=== PATIENT | male | born 1950 | race Caucasian/White ===

== ENCOUNTER → 2017-03-25 | Outpatient (CLI) | payer MEDICARE, MEDICAID ==
--- NOTE | 2017-03-26 07:58 | XCELERA REPORT ---
[address] [address] Lower Extremity Arterial Evaluation Name: BRE BERNARD Age: 66 yrs Gender: Male : 1950 Patient Status: Outpatient Patient Location: Study Date: 03/25/2017 09:15 AM Procedure: A color flow and duplex scan of the lower extremity arteries was performed bilaterally with velocity and waveform anaylsis. Reason For Study: PVD Ordering Physician: BEA GLASER Performed By: Adalberto Taylor Measurements and Calculations Right Left SUBSTATION OPERATOR APPRENTICE PSV 144.6 133.3 cm/sec Prox PFA PSV -138.3 -135.9 cm/sec Dist SFA PSV -167.9 -139.1 cm/sec Dist Pop A PSV 91.5 82.2 cm/sec Prox LYNN PSV 60.4 34.4 cm/sec Mid LYNN PSV 25.8 cm/sec Dist ACCOUNTANT SYSTEMS PSV 96.3 95.9 cm/sec Scott Pedis PSV 37.3 27.7 cm/sec Right Side Arterial Evaluation Normal velocity and triphasic waveforms noted from the Common Femoral artery to the Posterior Tibial artery. 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 . Ankle Brachial index is 1.09. Left Side Arterial Evaluation Normal velocity and triphasic waveforms noted from the Common Femoral artery to the Posterior Tibial artery. 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 . Ankle Brachial index is 1.11. Interpretation Summary Mild hemodynamically significant lesions in the bilateral lower extremities, on duplex imaging, at rest. : BEA GLASER > Germán Melton
== END ==
LOC: SP 08:46
PROVIDERS: ATTEND Internal Medicine
DX: I73.9 Peripheral vascular disease, unspecified (principal)
CPT/HCPCS: 93925

== ENCOUNTER → 2017-08-13 | Outpatient (CLI) | payer MEDICARE, MEDICAID | LOC: SP 07:34 | PROVIDERS: ATTEND Podiatrist Foot & Ankle Surgery | DX: I73.9 Peripheral vascular disease, unspecified (principal) ==

== ENCOUNTER → 2017-08-15 | Outpatient (CLI) | payer MEDICARE, MEDICAID ==
--- NOTE | 2017-08-15 11:34 | RADIOLOGY REPORT (SQ) ---
EXAM DESCRIPTION: CT SOFT TISSUE NECK WITHOUT COMPLETED DATE/TIME: 08/15/2017 10:20 am REASON FOR STUDY: LOCALIZED SWELLING, MASS AND LUMP, NECK (R22.1) R22.1 LOCALIZED SWELLING, MASS AN D LUMP, NECK COMPARISON: None. TECHNIQUE: Noncontrast scanning from skull base through lung apices with review of bone, soft tissue and lung windows. Reconstructed coronal and sagittal MPR images reviewed. All images stored on PAC S. All CT scanners at this facility use dose modulation, iterative reconstruction, and/or weight based d osing when appropriate to reduce radiation dose to as low as reasonably achievable (ALARA). [facility]: Dose Right [facility]: CareDose [facility]: Dose Right [facility]: Teradose 4D [facility]: [employer] RADIATION DOSE: 24 mGy. LIMITATIONS: None. FINDINGS: SKULL BASE: Intact. Inferior brain parenchyma in the field of view unremarkable. MAJOR SALIVARY GLANDS: No solid or cystic masses. No inflammatory changes. LYMPHADENOPATHY: No adenopathy. MUCOSAL MASSES OR ASYMMETRY: No mucosal masses or asymmetry. LARYNX/CORDS: No abnormal findings. Airway widely patent. Laryngeal structures are normal. LUNG APICES: Clear. BONES: Remote prior C5-6 fusion. THYROID: Normal size. No masses. PARANASAL SINUSES: Clear. OTHER: There is atherosclerotic carotid bifurcation calcification bilaterally. IMPRESSION: NO SIGNIFICANT FINDING IN THE SOFT TISSUES OF THE NECK. TECHNICAL DOCUMENTATION: JOB ID: [id number] Quality ID # [id number]: Final reports with documentation of one or more dose reduction techniques (e.g., Au tomated exposure control, adjustment of the mA and/or kV according to patient size, use of iterative reconstruction technique) 2010 [employer]- All Rights Reserved
== END ==
LOC: RAD 09:49
PROVIDERS: ATTEND Internal Medicine
DX: R22.1 Localized swelling, mass and lump, neck (principal)
CPT/HCPCS: 70490

== ENCOUNTER 2017-10-07 12:49 | Inpatient (IN) | payer MEDICARE, MEDICAID ==
[2017-10-07] MEDS ORDERED: INFLUENZA ADLT QUAD (36MOS+) 2017-18 VAC 0.5 ML SYR IM PRN (14:09)
[2017-10-07 15:07] LABS: HEMATOCRIT 33.1 % (37.9-51.0); HEMOGLOBIN 11.1 g/dL (13.5-17.0); MEAN CORPUSCULAR HEMOGLOBIN 26.5 pg (27.0-33.4); MEAN CORPUSCULAR HGB CONC 33.4 g/dL (32.0-36.0); MEAN CORPUSCULAR VOLUME 79 fl (80-97); PLATELET COUNT 421 10^3/uL (150-450); RED BLOOD COUNT 4.18 10^6/uL (4.35-5.55); WHITE BLOOD COUNT 15.9 10^3/uL (4.0-10.5)
[2017-10-07 15:22] LABS: ALANINE AMINOTRANSFERASE 20 U/L (21-72); ALBUMIN 4.1 g/dL (3.5-5.0); ALKALINE PHOSPHATASE 93 U/L (38-126); ANION GAP 17 (5-19); ASPARTATE AMINO TRANSFERASE 17 U/L (17-59); BILIRUBIN,TOTAL 0.3 mg/dL (0.2-1.3); BLOOD UREA NITROGEN 14 mg/dL (7-20); CALCIUM 9.4 mg/dL (8.4-10.2); CARBON DIOXIDE 26 mmol/L (22-30); CHLORIDE 86 mmol/L (98-107); GLUCOSE 113 mg/dL (75-110); POTASSIUM 3.4 mmol/L (3.6-5.0); SODIUM 128.5 mmol/L (137-145); TOTAL PROTEIN 7.2 g/dL (6.3-8.2)
--- NOTE | 2017-10-07 16:15 | RADIOLOGY REPORT (SQ) ---
EXAM DESCRIPTION: CT CHEST WITHOUT COMPLETED DATE/TIME: 10/07/2017 3:47 pm REASON FOR STUDY: COPD,PNA COMPARISON: CT chest 01/23/2011, 10/26/2014, 01/18/2016 TECHNIQUE: CT scan performed of the chest without intravenous contrast. Images reviewed with lung, soft tissue and bone windows. Reconstructed coronal and sagittal MPR images reviewed. All images st ored on PACS. All CT scanners at this facility use dose modulation, iterative reconstruction, and/or weight based d osing when appropriate to reduce radiation dose to as low as reasonably achievable (ALARA). [facility]: Dose Right [facility]: CareDose [facility]: Dose Right [facility]: Teradose 4D [facility]: [employer] RADIATION DOSE: CT Rad equipment meets quality standard of care and radiation dose reduction techniq ues were employed. CTDIvol: 15.9 mGy. DLP: 571 mGy-cm. mGy. LIMITATIONS: No technical limitations. FINDINGS: LUNGS AND PLEURA: Since the chest CT 01/18/2016, patient has developed peripheral pulmonary fibrosis with honeycombing in the anterior aspect of the right upper lobe. In the right posterior costophrenic sulcus there is new consolidation, atelectasis versus pneumonia. There is stable rounded atelectasis in the left posterior costophrenic sulcus and lateral costophreni c sulcus as compared to 2016 No worrisome pulmonary nodules. Mild changes of obstructive lung disease with enlarged centrilobular airspaces in the upper lobes bilaterally. No pleural effusions. Heavily calcified pleural plaques are present bilaterally. HILAR AND MEDIASTINAL STRUCTURES: Multiple small pretracheal, AP window, and bilateral hilar lymph no narendra are present stable compared to previous exams. HEART AND VASCULAR STRUCTURES: No aneurysm. No pericardial effusion. Heavily calcified coronary art eries UPPER ABDOMEN: Small hiatal hernia. 1.5 cm cyst right upper pole kidney THYROID AND OTHER SOFT TISSUES: No masses. No adenopathy. BONES: Since the prior study in 2014, patient has developed a chronic appearing 25% upper endplate T8 compression deformity HARDWARE: None in the chest. OTHER: No other significant findings. IMPRESSION: Right posterior costophrenic sulcus consolidation, atelectasis versus pneumonia Chronic lung parenchymal findings including obstructive disease, pulmonary fibrosis, and rounded atel ectasis. Multiple calcific pleural plaques without pleural effusion Heavily calcified coronary arteries TECHNICAL DOCUMENTATION: JOB ID: [id number] Quality ID # [id number]: Final reports with documentation of one or more dose reduction techniques (e.g., Au tomated exposure control, adjustment of the mA and/or kV according to patient size, use of iterative reconstruction technique) 2010 [employer]- All Rights Reserved
[2017-10-07 18:05] LABS: APPEARANCE,URINE CLEAR; BILIRUBIN,URINE NEGATIVE (NEGATIVE); COLOR,URINE YELLOW; GLUCOSE, URINE NEGATIVE (NEGATIVE); KETONES,URINE TRACE mg/dL (NEGATIVE); LEUKOCYTE ESTERASE,URINE NEGATIVE (NEGATIVE); NITRITE,URINE NEGATIVE (NEGATIVE); PROTEIN,URINE NEGATIVE (NEGATIVE); URINE SPECIFIC GRAVITY 1.019
[2017-10-07 18:10] LABS: ARTERIAL BLOOD FIO2 2L; ARTERIAL BLOOD HCO3 26.8 mmol/L (20-26); ARTERIAL BLOOD O2 SATURATION 41.1 % (94-98); ARTERIAL BLOOD PCO2 43.1 mmHg (35-45); ARTERIAL BLOOD PH 7.41 (7.35-7.45); ARTERIAL BLOOD TOTAL CO2 28.2 mmol/L (23-27)
[2017-10-07 18:12] LABS: ARTERIAL BLOOD PO2 23.2 mmHg (80-100)
[2017-10-07] MEDS: LEVOFLOXACIN 750 MG/D5W RTU 750 MG/150 ML RTUPB IV SCH (18:54)
[2017-10-07] MEDS ORDERED: (PENDING PHARMACY ID) (Lisinopril/Hydrochlorothiazide [Zestoretic 20-12.5 Mg Tablet] 1 TAB PO SCH (19:15)
[2017-10-07 21:15] LABS: ARTERIAL BLOOD H2CO3 1.11 mmol/L (1.05-1.35); ARTERIAL BLOOD HCO3 26.5 mmol/L (20-26); ARTERIAL BLOOD O2 SATURATION 92.9 % (94-98); ARTERIAL BLOOD PCO2 36.8 mmHg (35-45); ARTERIAL BLOOD PH 7.48 (7.35-7.45); ARTERIAL BLOOD PO2 60.7 mmHg (80-100); ARTERIAL BLOOD TOTAL CO2 27.7 mmol/L (23-27)
[2017-10-07 21:16] LABS: ARTERIAL BLOOD FIO2 2L
[2017-10-07] MEDS: IPRATROPIUM/ALBUTEROL 0.5-2.5 MG/3 ML AMPUL NEB SCH (21:23)
[2017-10-07] MEDS: LISINOPRIL 10 MG TABLET PO SCH (21:25)
[2017-10-07] MEDS: SERTRALINE HCL 50 MG TABLET PO SCH (21:25)
[2017-10-07] MEDS: HYDROCHLOROTHIAZIDE 12.5 MG CAPSULE PO SCH (21:25)
[2017-10-07] MEDS: GABAPENTIN 300 MG CAPSULE PO SCH (21:25)
[2017-10-07] MEDS: CLONIDINE HCL 0.1 MG TABLET PO SCH (21:25)
[2017-10-07] MEDS: ZOLPIDEM TARTRATE 5 MG TABLET PO SCH (21:26)
[2017-10-07] MEDS: CEFEPIME HCL 2 GM in DEXTROSE 5%-WATER 50 ML IV SCH (21:35)
--- NOTE | 2017-10-07 21:47 | PDOC H&P ---
History of Present Illness Admission Date/PCP: 10/07/17 12:49 BEA GLASER MD History of Present Illness: BRE BERNARD is a 66 year old male,He has a history of chronic obstructive pulmonary disease, a recalcitrant smoker he was seen in the office more than twice for treatment of bronchitis, flulike symptoms. He came to the office today for evaluation of cough, fever, blisters in the upper lip, shortness of breath. In the office he was evaluated he was coughing of tenacious yellowish sputum on auscultation ofhis chest there was crackles wheezes. He was admitted directly from the office into the hospital for further evaluation of his chest symptoms blood gas was done , pH is 7.48, PO2 60.7 PCO2 36.8, bicarbonate 26.5, FiO2 [address] chest without contrast was done he showed progressive development of peripheral pulmonary fibrosis with honey combing in the anterior aspect of the right upper lobe in the right posterior costophrenic sulcus there is a new consolidation that suggest pneumonia because can was gone. Surgical scar from 01/18/2016 also found was changes of obstructive lung disease with a large centrilobular spaces in the upper lobe bilaterally Past Medical History Cardiac Medical History: Reports: Coronary Artery Disease, Myocardial Infarction , Hyperlipidema, Hypertension Neurological Medical History: Denies: Seizures GI Medical History: Reports: Gastroesophageal Reflux Disease Psychiatric Medical History: Reports: Depression Social History Smoking Status: Current Every Day Smoker Frequency of Alcohol Use: Occasional Hx Recreational Drug Use: No Drugs: None Hx Prescription Drug Abuse: No Family History Family History: Reviewed & Not Pertinent Parental Family History Reviewed: Yes Children Family History Reviewed: Yes Sibling(s) Family History Reviewed.: Yes Medication/Allergy Home Medications: Acetaminophen with Codeine [Tylenol #3 Tablet] 1 tab PO Q6HP PRN 10/07/17 Aripiprazole [Abilify 2 mg Tablet] 2 mg PO DAILY 10/07/17 Clobetasol Propionate [Clobetasol Propionate Cream] 1 applic TOP BID 10/07/17 Clonidine HCl [Catapres 0.1 mg Tablet] 0.1 mg PO BID 10/07/17 Furosemide [Lasix 40 mg Tablet] 40 mg PO DAILY 10/07/17 Gabapentin [Neurontin 300 mg Capsule] 300 mg PO Q8 10/07/17 Lisinopril/Hydrochlorothiazide [Zestoretic 20-12.5 mg Tablet] 1 tab PO Q12 10/07 Metoprolol Succinate [Toprol Xl 25 mg Tab.sr] 25 mg PO DAILY 10/07/17 Omeprazole 40 mg PO DAILY 10/07/17 Piroxicam [Feldene] 20 mg PO DAILY 10/07/17 Pramipexole Di-HCl [Mirapex 0.25 mg Tablet] 0.25 mg PO BID 10/07/17 Sertraline HCl [Zoloft] 100 mg PO BID 10/07/17 Zolpidem Tartrate [Ambien] 10 mg PO QHS 10/07/17 Allergies/Adverse Reactions: No Known Allergies Allergy (Verified 01/18/16 13:02) Review of Systems Constitutional: PRESENT: chills Eyes: ABSENT: visual disturbances Ears: ABSENT: hearing changes Cardiovascular: PRESENT: dyspnea on exertion Respiratory: PRESENT: cough, dyspnea, sputum Gastrointestinal: ABSENT: abdominal pain, constipation, diarrhea, hematemesis, hematochezia, nausea, vomiting Genitourinary: ABSENT: dysuria, hematuria Musculoskeletal: ABSENT: joint swelling Integumentary: ABSENT: rash, wounds Neurological: ABSENT: abnormal gait, abnormal speech, confusion, dizziness, focal weakness, syncope Psychiatric: ABSENT: anxiety, depression, homidical ideation, suicidal ideation Endocrine: ABSENT: cold intolerance, heat intolerance, menstrual abnormalities, polydipsia, polyuria Hematologic/Lymphatic: ABSENT: easy bleeding, easy bruising, lymphadenopathy Physical Exam Vital Signs: Temp Pulse Resp BP Pulse Ox 98.2 F 85 15 143/65 H 90 L 10/07/17 16:54 10/07/17 19:00 10/07/17 16:54 10/07/17 16:54 10/07/17 16:54 Intake & Output 10/06/17 10/07/17 10/08/17 06:59 06:59 06:59 Weight 97.976 kg General appearance: PRESENT: no acute distress Eye exam: PRESENT: PERRLA Respiratory exam: PRESENT: rhonchi, wheezes Cardiovascular exam: PRESENT: +S1, +S2 GI/Abdominal exam: PRESENT: soft Neurological exam: PRESENT: alert, CN II-XII grossly intact Results Laboratory Results: 10/07/17 14:43 10/07/17 14:43 02/02/1610/07/17 10/07/17 14:43 14:43 14:50 WBC 15.9 H RBC 4.18 L Hgb 11.1 L Hct 33.1 L MCV 79 L MCH 26.5 L MCHC 33.4 RDW 16.0 H Plt Count 421 Carbonic Acid 1.30 HCO3/H2CO3 Ratio 20:1 ABG pH 7.41 ABG pCO2 43.1 ABG pO2 23.2 L* ABG HCO3 26.8 H ABG O2 Saturation 41.1 L ABG Base Excess 2.0 FiO2 2L Sodium 128.5 L Potassium 3.4 L Chloride 86 L Carbon Dioxide 26 Anion Gap 17 BUN 14 Creatinine 0.78 Est GFR ( Amer) > 60 Est GFR (Non-Af Amer) > 60 Glucose 113 H Calcium 9.4 Total Bilirubin 0.3 AST 17 ALT 20 L Alkaline Phosphatase 93 Total Protein 7.2 Albumin 4.1 Urine Color Urine Appearance Urine pH Ur Specific [place] Urine Protein Urine Glucose (UA) Urine Ketones Urine Blood Urine Nitrite Ur Leukocyte Esterase Urine WBC (Auto) Urine RBC (Auto) 10/07/17 10/07/17 17:45 19:00 WBC RBC Hgb Hct MCV MCH MCHC RDW Plt Count Carbonic Acid 1.11 HCO3/H2CO3 Ratio 23:1 ABG pH 7.48 H ABG pCO2 36.8 ABG pO2 60.7 L ABG HCO3 26.5 H ABG O2 Saturation 92.9 L ABG Base Excess 3.0 FiO2 2L Sodium Potassium Chloride Carbon Dioxide Anion Gap BUN Creatinine Est GFR ( Amer) Est GFR (Non-Af Amer) Glucose Calcium Total Bilirubin AST ALT Alkaline Phosphatase Total Protein Albumin Urine Color YELLOW Urine Appearance CLEAR Urine pH 6.0 Ur Specific [place] 1.019 Urine Protein NEGATIVE Urine Glucose (UA) NEGATIVE Urine Ketones TRACE H Urine Blood NEGATIVE Urine Nitrite NEGATIVE Ur Leukocyte Esterase NEGATIVE Urine WBC (Auto) 1 Urine RBC (Auto) 2 Impressions: Chest CT 10/07/17 13:26 IMPRESSION: Right posterior costophrenic sulcus consolidation, atelectasis versus pneumonia Chronic lung parenchymal findings including obstructive disease, pulmonary fibrosis, and rounded atelectasis. Multiple calcific pleural plaques without pleural effusion Heavily calcified coronary arteries Assessment & Plan - Diagnosis (1) Acute hypoxemic respiratory failure Is this a current diagnosis for this admission?: Yes Plan: Start oxygen on 2 L (2) Pneumonia involving right lung Qualifiers: Pneumonia type: due to unspecified organism Lung location: upper lobe of lung Qualified Code(s): J18.1 - Lobar pneumonia, unspecified organism Is this a current diagnosis for this admission?: Yes Plan: Patient will be treated with IV antibiotic to cover community-acquired pneumonia pathogens, Levaquin, cefepime (3) Pulmonary fibrosis Is this a current diagnosis for this admission?: Yes (4) Chronic obstructive pulmonary disease Qualifiers: COPD type: unspecified COPD Qualified Code(s): J44.9 - Chronic obstructive pulmonary disease, unspecified Is this a current diagnosis for this admission?: Yes
[2017-10-08] MEDS: ACETAMINOPHEN WITH CODEINE #3 TABLET PO PRN ×2 (02:09→21:08)
[2017-10-08] MEDS: LANSOPRAZOLE 30 MG TAB.RAP.DR PO SCH (06:01)
[2017-10-08] MEDS: GABAPENTIN 300 MG CAPSULE PO SCH ×3 (06:01→21:08)
[2017-10-08] MEDS: IPRATROPIUM/ALBUTEROL 0.5-2.5 MG/3 ML AMPUL NEB SCH ×3 (08:23→19:22)
[2017-10-08] MEDS: CLONIDINE HCL 0.1 MG TABLET PO SCH ×2 (10:03→21:08)
[2017-10-08] MEDS: HYDROCHLOROTHIAZIDE 12.5 MG CAPSULE PO SCH ×2 (10:03→21:08)
[2017-10-08] MEDS: SERTRALINE HCL 50 MG TABLET PO SCH ×2 (10:04→21:08)
[2017-10-08] MEDS: ARIPIPRAZOLE 2 MG TABLET PO SCH (10:04)
[2017-10-08] MEDS: METOPROLOL SUCCINATE 25 MG TAB.SR.24H PO SCH (10:04)
[2017-10-08] MEDS: CEFEPIME HCL 2 GM in DEXTROSE 5%-WATER 50 ML IV SCH ×2 (10:04→22:56)
[2017-10-08] MEDS: LISINOPRIL 10 MG TABLET PO SCH ×2 (10:04→21:08)
--- NOTE | 2017-10-08 13:29 | Physician Advisory Note ---
Physician Advisor ProgressNote .: Pursuant to the plan for [facility], I have reviewed the medical record for this patient. Physician Advisor Statement: Sx of the pneumonia are nicely documented. Please consider documenting, if you agree: 1. "Acute Hyponatremia, suspect due to " 2. Findings of increased work of breathing (accessory muscle use, ...) to to with hypoxemia support dx of Acute Respiratory Failure. 3. "Pneumonia, suspect due to [gram positive organism? gram neg?, ...] , evidenced by cough, sputum, SOB, JUNE, hypoxemia, leukocytosis, infiltrate" - any fever/chills too? - mentioning "cover for CAP pathogens" is not enough for coding accurately/ specifically, as much as we might feel it ought to be.... Thanks! CK
[2017-10-08 14:41] LABS: ABSOLUTE EOSINOPHILS # (AUTO) 0.3 10^3/uL (0.0-0.6); ABSOLUTE LYMPHOCYTES (AUTO) 1.4 10^3/uL (0.5-4.7); ABSOLUTE MONOCYTES (AUTO) 0.8 10^3/uL (0.1-1.4); ABSOLUTE NEUT (AUTO) 9.8 10^3/uL (1.7-8.2); BASOPHILS % (AUTO) 0.2 % (0-2); EOSINOPHILS % (AUTO) 2.1 % (0-6); HEMATOCRIT 30.4 % (37.9-51.0); LYMPHOCYTES % (AUTO) 11.4 % (13-45); MEAN CORPUSCULAR HEMOGLOBIN 26.3 pg (27.0-33.4); MEAN CORPUSCULAR VOLUME 80 fl (80-97); MONOCYTES % (AUTO) 6.3 % (3-13); PLATELET COUNT 396 10^3/uL (150-450); RED BLOOD COUNT 3.81 10^6/uL (4.35-5.55); TOTAL CELLS COUNTED % (AUTO) 100 %; WHITE BLOOD COUNT 12.3 10^3/uL (4.0-10.5)
[2017-10-08 15:18] LABS: ALANINE AMINOTRANSFERASE 22 U/L (21-72); ALBUMIN 3.3 g/dL (3.5-5.0); ALKALINE PHOSPHATASE 91 U/L (38-126); ANION GAP 10 (5-19); ASPARTATE AMINO TRANSFERASE 16 U/L (17-59); BILIRUBIN,TOTAL 0.2 mg/dL (0.2-1.3); BLOOD UREA NITROGEN 11 mg/dL (7-20); CALCIUM 9.1 mg/dL (8.4-10.2); CARBON DIOXIDE 28 mmol/L (22-30); CHLORIDE 94 mmol/L (98-107); GLUCOSE 129 mg/dL (75-110); POTASSIUM 3.7 mmol/L (3.6-5.0); TOTAL PROTEIN 6.5 g/dL (6.3-8.2)
--- NOTE | 2017-10-08 15:54 | PDOC PROGRESS REPORT ---
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 Reason For Visit: PNA,COPD Physical Exam Vital Signs: Temp Pulse Resp BP Pulse Ox 98.3 F 66 16 127/71 H 93 10/08/17 12:00 10/08/17 14:00 10/08/17 14:00 10/08/17 12:00 10/08/17 14:00 Intake & Output 10/07/17 10/08/17 10/09/17 06:59 06:59 06:59 Intake Total 720 1242 Output Total 950 700 Balance -230 542 Weight 97.976 kg Head exam: PRESENT: atraumatic, normocephalic Eye exam: PRESENT: PERRLA Neck exam: PRESENT: full ROM Respiratory exam: PRESENT: decreased breath sounds Cardiovascular exam: PRESENT: RRR, +S1, +S2 Vascular exam: PRESENT: normal capillary refill GI/Abdominal exam: PRESENT: normal bowel sounds, soft Rectal exam: PRESENT: deferred Neurological exam: PRESENT: alert, CN II-XII grossly intact Psychiatric exam: PRESENT: appropriate affect, normal mood Skin exam: PRESENT: dry, intact, warm Results Laboratory Results: 10/08/17 14:17 10/08/17 14:17 10/07/17 10/07/17 10/07/17 14:43 14:50 17:45 WBC RBC Hgb Hct MCV MCH MCHC RDW Plt Count Seg Neutrophils % Lymphocytes % Monocytes % Eosinophils % Basophils % Absolute Neutrophils Absolute Lymphocytes Absolute Monocytes Absolute Eosinophils Absolute Basophils Carbonic Acid 1.30 HCO3/H2CO3 Ratio 20:1 ABG pH 7.41 ABG pCO2 43.1 ABG pO2 23.2 L* ABG HCO3 26.8 H ABG O2 Saturation 41.1 L ABG Base Excess 2.0 FiO2 2L Sodium Potassium Chloride Carbon Dioxide Anion Gap BUN Creatinine Est GFR ( Amer) Est GFR (Non-Af Amer) Glucose Serum Osmolality 259 L Calcium Total Bilirubin AST ALT Alkaline Phosphatase Total Protein Albumin Urine Color YELLOW Urine Appearance CLEAR Urine pH 6.0 Ur Specific [place] 1.019 Urine Protein NEGATIVE Urine Glucose (UA) NEGATIVE Urine Ketones TRACE H Urine Blood NEGATIVE Urine Nitrite NEGATIVE Ur Leukocyte Esterase NEGATIVE Urine WBC (Auto) 1 Urine RBC (Auto) 2 Urine Osmolality 10/07/17 10/07/17 10/08/17 17:45 19:00 14:17 WBC 12.3 H RBC 3.81 L Hgb 10.0 L Hct 30.4 L MCV 80 MCH 26.3 L MCHC 33.0 RDW 16.0 H Plt Count 396 Seg Neutrophils % 80.0 H Lymphocytes % 11.4 L Monocytes % 6.3 Eosinophils % 2.1 Basophils % 0.2 Absolute Neutrophils 9.8 H Absolute Lymphocytes 1.4 Absolute Monocytes 0.8 Absolute Eosinophils 0.3 Absolute Basophils 0.0 Carbonic Acid 1.11 HCO3/H2CO3 Ratio 23:1 ABG pH 7.48 H ABG pCO2 36.8 ABG pO2 60.7 L ABG HCO3 26.5 H ABG O2 Saturation 92.9 L ABG Base Excess 3.0 FiO2 2L Sodium Potassium Chloride Carbon Dioxide Anion Gap BUN Creatinine Est GFR ( Amer) Est GFR (Non-Af Amer) Glucose Serum Osmolality Calcium Total Bilirubin AST ALT Alkaline Phosphatase Total Protein Albumin Urine Color Urine Appearance Urine pH Ur Specific [place] Urine Protein Urine Glucose (UA) Urine Ketones Urine Blood Urine Nitrite Ur Leukocyte Esterase Urine WBC (Auto) Urine RBC (Auto) Urine Osmolality 577 10/08/17 14:17 WBC RBC Hgb Hct MCV MCH MCHC RDW Plt Count Seg Neutrophils % Lymphocytes % Monocytes % Eosinophils % Basophils % Absolute Neutrophils Absolute Lymphocytes Absolute Monocytes Absolute Eosinophils Absolute Basophils Carbonic Acid HCO3/H2CO3 Ratio ABG pH ABG pCO2 ABG pO2 ABG HCO3 ABG O2 Saturation ABG Base Excess FiO2 Sodium 132.0 L Potassium 3.7 Chloride 94 L Carbon Dioxide 28 Anion Gap 10 BUN 11 Creatinine 0.71 Est GFR ( Amer) > 60 Est GFR (Non-Af Amer) > 60 Glucose 129 H Serum Osmolality Calcium 9.1 Total Bilirubin 0.2 AST 16 L ALT 22 Alkaline Phosphatase 91 Total Protein 6.5 Albumin 3.3 L Urine Color Urine Appearance Urine pH Ur Specific [place] Urine Protein Urine Glucose (UA) Urine Ketones Urine Blood Urine Nitrite Ur Leukocyte Esterase Urine WBC (Auto) Urine RBC (Auto) Urine Osmolality Impressions: Chest CT 10/07/17 13:26 IMPRESSION: Right posterior costophrenic sulcus consolidation, atelectasis versus pneumonia Chronic lung parenchymal findings including obstructive disease, pulmonary fibrosis, and rounded atelectasis. Multiple calcific pleural plaques without pleural effusion Heavily calcified coronary arteries Assessment & Plan - Diagnosis (1) Acute hypoxemic respiratory failure Is this a current diagnosis for this admission?: Yes (2) Pneumonia due to hemophilus influenzae Qualifiers: Laterality: right Lung location: middle lobe of lung Qualified Code(s): J14 - Pneumonia due to Hemophilus influenzae Is this a current diagnosis for this admission?: Yes Plan: Sputum culture grew Haemophilus influenza, presently on IV antibiotic that will cover this pathogen. (3) Pneumonia involving right lung Qualifiers: Pneumonia type: due to unspecified organism Lung location: upper lobe of lung Qualified Code(s): J18.1 - Lobar pneumonia, unspecified organism Is this a current diagnosis for this admission?: Yes (4) Pulmonary fibrosis Is this a current diagnosis for this admission?: Yes (5) Chronic obstructive pulmonary disease Qualifiers: COPD type: unspecified COPD Qualified Code(s): J44.9 - Chronic obstructive pulmonary disease, unspecified Is this a current diagnosis for this admission?: Yes
[2017-10-08] MEDS: LEVOFLOXACIN 750 MG/D5W RTU 750 MG/150 ML RTUPB IV SCH (19:03)
[2017-10-08] MEDS: NORMAL SALINE 1000 ML 1,000 ML IV PRN (21:08)
[2017-10-08] MEDS: ZOLPIDEM TARTRATE 5 MG TABLET PO SCH (21:08)
[2017-10-08] MEDS ORDERED: ACYCLOVIR 200 MG CAPSULE ONE (22:44)
[2017-10-08] MEDS: ACYCLOVIR 200 MG CAPSULE PO SCH (23:00)
[2017-10-09] MEDS: GABAPENTIN 300 MG CAPSULE PO SCH ×3 (05:58→21:32)
[2017-10-09] MEDS: LANSOPRAZOLE 30 MG TAB.RAP.DR PO SCH (05:58)
[2017-10-09 07:25] LABS: HEMATOCRIT 30.1 % (37.9-51.0); HEMOGLOBIN 9.8 g/dL (13.5-17.0); MEAN CORPUSCULAR HGB CONC 32.6 g/dL (32.0-36.0); MEAN CORPUSCULAR VOLUME 80 fl (80-97); PLATELET COUNT 391 10^3/uL (150-450); RED BLOOD COUNT 3.79 10^6/uL (4.35-5.55); RED CELL DISTRIBUTION WIDTH 15.8 % (11.5-14.0); WHITE BLOOD COUNT 13.3 10^3/uL (4.0-10.5)
[2017-10-09 07:43] LABS: ALANINE AMINOTRANSFERASE 25 U/L (21-72); ALBUMIN 3.4 g/dL (3.5-5.0); ALKALINE PHOSPHATASE 93 U/L (38-126); ANION GAP 12 (5-19); ASPARTATE AMINO TRANSFERASE 17 U/L (17-59); BLOOD UREA NITROGEN 10 mg/dL (7-20); CALCIUM 8.9 mg/dL (8.4-10.2); CARBON DIOXIDE 27 mmol/L (22-30); CHLORIDE 95 mmol/L (98-107); GLUCOSE 116 mg/dL (75-110); SODIUM 133.6 mmol/L (137-145); TOTAL PROTEIN 6.2 g/dL (6.3-8.2)
[2017-10-09 07:44] LABS: BILIRUBIN,TOTAL < 0.1 mg/dL (0.2-1.3)
[2017-10-09 08:05] LABS: ABSOLUTE LYMPHOCYTES# (MANUAL) 0.9 10^3/uL (0.5-4.7); ABSOLUTE MONOCYTES # (MANUAL) 0.7 10^3/uL (0.1-1.4); BAND NEUTROPHILS % (MANUAL) 1 % (3-5); BASOPHILS % (MANUAL) 0 % (0-2); EOSINOPHILS % (MANUAL) 5 % (0-6); LYMPHOCYTES % (MANUAL) 7 % (13-45); MONOCYTES % (MANUAL) 5 % (3-13); SEGMENTED NEUTROPHILS % (MAN) 82 % (42-78); TOTAL CELLS COUNTED 100
[2017-10-09 08:06] LABS: ANISOCYTOSIS SLIGHT; OVALOCYTES SLIGHT; PLATELET COMMENT ADEQUATE; POIKILOCYTOSIS SLIGHT; POLYCHROMASIA 1+; TOXIC GRANULATION 1+
[2017-10-09] MEDS: IPRATROPIUM/ALBUTEROL 0.5-2.5 MG/3 ML AMPUL NEB SCH ×3 (08:55→20:59)
[2017-10-09] MEDS: METOPROLOL SUCCINATE 25 MG TAB.SR.24H PO SCH (09:46)
[2017-10-09] MEDS: CLONIDINE HCL 0.1 MG TABLET PO SCH ×2 (09:46→21:32)
[2017-10-09] MEDS: CEFEPIME HCL 2 GM in DEXTROSE 5%-WATER 50 ML IV SCH ×2 (09:46→21:32)
[2017-10-09] MEDS: ACYCLOVIR 200 MG CAPSULE PO SCH ×4 (09:46→21:32)
[2017-10-09] MEDS: LISINOPRIL 10 MG TABLET PO SCH ×2 (09:46→21:32)
[2017-10-09] MEDS: SERTRALINE HCL 50 MG TABLET PO SCH ×2 (09:46→21:32)
[2017-10-09] MEDS: ARIPIPRAZOLE 2 MG TABLET PO SCH (09:46)
[2017-10-09] MEDS: HYDROCHLOROTHIAZIDE 12.5 MG CAPSULE PO SCH ×2 (09:46→21:32)
[2017-10-09] MEDS: HYDROMORPHONE HCL INJ/PF 2 MG/ML AMPULE IV PRN ×3 (09:55→21:39)
[2017-10-09] MEDS: LEVOFLOXACIN 750 MG TABLET PO SCH (18:42)
[2017-10-09] MEDS: ZOLPIDEM TARTRATE 5 MG TABLET PO SCH (21:32)
--- NOTE | 2017-10-09 22:07 | PDOC PROGRESS REPORT ---
Subjective Progress Note for:: 10/09/17 Subjective:: Patient was seen by the bedside the sputum culture grew Haemophilus influenza Reason For Visit: PNA,COPD Physical Exam Vital Signs: Temp Pulse Resp BP Pulse Ox 98.1 F 67 20 172/78 H 96 10/09/17 20:00 10/09/17 20:00 10/09/17 20:00 10/09/17 20:00 10/09/17 20:00 Intake & Output 10/08/17 10/09/17 10/10/17 06:59 06:59 06:59 Intake Total 720 3162 1434 Output Total 950 1700 950 Balance -230 1462 484 Weight 97.976 kg General appearance: PRESENT: mild distress Eye exam: PRESENT: PERRLA Respiratory exam: PRESENT: rhonchi Cardiovascular exam: PRESENT: +S1, +S2 GI/Abdominal exam: PRESENT: soft Neurological exam: PRESENT: alert Results Laboratory Results: 10/09/17 06:56 10/09/17 06:56 10/09/17 10/09/17 06:56 06:56 WBC 13.3 H RBC 3.79 L Hgb 9.8 L Hct 30.1 L MCV 80 MCH 26.0 L MCHC 32.6 RDW 15.8 H Plt Count 391 Seg Neutrophils % Not Reportable Lymphocytes % Not Reportable Monocytes % Not Reportable Eosinophils % Not Reportable Basophils % Not Reportable Absolute Neutrophils Not Reportable Absolute Lymphocytes Not Reportable Absolute Monocytes Not Reportable Absolute Eosinophils Not Reportable Absolute Basophils Not Reportable Sodium 133.6 L Potassium 4.0 Chloride 95 L Carbon Dioxide 27 Anion Gap 12 BUN 10 Creatinine 0.62 Est GFR ( Amer) > 60 Est GFR (Non-Af Amer) > 60 Glucose 116 H Calcium 8.9 Total Bilirubin < 0.1 L AST 17 ALT 25 Alkaline Phosphatase 93 Total Protein 6.2 L Albumin 3.4 L 10/07/17 18:12 Sputum Gram Stain - Final 10/07/17 18:12 Sputum Sputum Culture - Final Haemophilus Influenzae Reduced Normal Jazmyn 10/07/17 17:45 Clean Catch Midstream Urine Culture - Final NO GROWTH 2 DAYS Impressions: Chest CT 10/07/17 13:26 IMPRESSION: Right posterior costophrenic sulcus consolidation, atelectasis versus pneumonia Chronic lung parenchymal findings including obstructive disease, pulmonary fibrosis, and rounded atelectasis. Multiple calcific pleural plaques without pleural effusion Heavily calcified coronary arteries Assessment & Plan - Diagnosis (1) Acute hypoxemic respiratory failure Is this a current diagnosis for this admission?: Yes (2) Pneumonia due to hemophilus influenzae Qualifiers: Laterality: right Lung location: middle lobe of lung Qualified Code(s): J14 - Pneumonia due to Hemophilus influenzae Is this a current diagnosis for this admission?: Yes (3) Pneumonia involving right lung Qualifiers: Pneumonia type: due to unspecified organism Lung location: upper lobe of lung Qualified Code(s): J18.1 - Lobar pneumonia, unspecified organism Is this a current diagnosis for this admission?: Yes (4) Pulmonary fibrosis Is this a current diagnosis for this admission?: Yes (5) Chronic obstructive pulmonary disease Qualifiers: COPD type: unspecified COPD Qualified Code(s): J44.9 - Chronic obstructive pulmonary disease, unspecified Is this a current diagnosis for this admission?: Yes (6) SIADH (syndrome of inappropriate ADH production) Is this a current diagnosis for this admission?: Yes - Plan Summary Plan Summary: Continue IV antibiotic
[2017-10-10] MEDS: HYDROMORPHONE HCL INJ/PF 2 MG/ML AMPULE IV PRN ×4 (03:42→21:13)
[2017-10-10] MEDS: GABAPENTIN 300 MG CAPSULE PO SCH ×3 (06:33→21:26)
[2017-10-10] MEDS: LANSOPRAZOLE 30 MG TAB.RAP.DR PO SCH (06:33)
[2017-10-10] MEDS: IPRATROPIUM/ALBUTEROL 0.5-2.5 MG/3 ML AMPUL NEB SCH ×3 (08:41→22:18)
[2017-10-10] MEDS: ACYCLOVIR 200 MG CAPSULE PO SCH ×4 (10:14→21:14)
[2017-10-10] MEDS: ARIPIPRAZOLE 2 MG TABLET PO SCH (10:14)
[2017-10-10] MEDS: CLONIDINE HCL 0.1 MG TABLET PO SCH ×2 (10:15→21:14)
[2017-10-10] MEDS: HYDROCHLOROTHIAZIDE 12.5 MG CAPSULE PO SCH ×2 (10:16→21:14)
[2017-10-10] MEDS: LISINOPRIL 10 MG TABLET PO SCH ×2 (10:16→21:14)
[2017-10-10] MEDS: METOPROLOL SUCCINATE 25 MG TAB.SR.24H PO SCH (10:17)
[2017-10-10] MEDS: SERTRALINE HCL 50 MG TABLET PO SCH ×2 (10:18→21:14)
[2017-10-10] MEDS: CEFEPIME HCL 2 GM in DEXTROSE 5%-WATER 50 ML IV SCH ×2 (10:22→21:14)
[2017-10-10] MEDS: LEVOFLOXACIN 750 MG TABLET PO SCH (18:32)
[2017-10-10] MEDS: ZOLPIDEM TARTRATE 5 MG TABLET PO SCH (21:13)
--- NOTE | 2017-10-10 21:24 | PDOC PROGRESS REPORT ---
Subjective Progress Note for:: 10/10/17 Subjective:: He was seen by the bedside complaining of pain, requiring pain medication Reason For Visit: PNA,COPD Physical Exam Vital Signs: Temp Pulse Resp BP Pulse Ox 98.1 F 89 20 183/91 H 92 10/10/17 17:47 10/10/17 17:47 10/10/17 17:47 10/10/17 17:47 10/10/17 17:47 Intake & Output 10/09/17 10/10/17 10/11/17 06:59 06:59 06:59 Intake Total 3162 2897 1420 Output Total 1700 1950 250 Balance 6308 531 6015 Head exam: PRESENT: atraumatic, normocephalic Eye exam: PRESENT: conjunctiva pink, EOMI, PERRLA Ear exam: PRESENT: normal external ear exam Mouth exam: PRESENT: moist, tongue midline Neck exam: PRESENT: full ROM Cardiovascular exam: PRESENT: RRR, +S1, +S2 Pulses: PRESENT: normal dorsalis pedis pul, +2 pedal pulses bilateral Vascular exam: PRESENT: normal capillary refill GI/Abdominal exam: PRESENT: normal bowel sounds, soft Rectal exam: PRESENT: deferred Neurological exam: PRESENT: alert, awake, oriented to person, oriented to place , oriented to time, oriented to situation, CN II-XII grossly intact Psychiatric exam: PRESENT: appropriate affect, normal mood Skin exam: PRESENT: dry, intact, warm Results Laboratory Results: 10/09/17 06:56 10/09/17 06:56 Impressions: Chest CT 10/07/17 13:26 IMPRESSION: Right posterior costophrenic sulcus consolidation, atelectasis versus pneumonia Chronic lung parenchymal findings including obstructive disease, pulmonary fibrosis, and rounded atelectasis. Multiple calcific pleural plaques without pleural effusion Heavily calcified coronary arteries Assessment & Plan - Diagnosis (1) Acute hypoxemic respiratory failure Is this a current diagnosis for this admission?: Yes (2) Pneumonia due to hemophilus influenzae Qualifiers: Laterality: right Lung location: middle lobe of lung Qualified Code(s): J14 - Pneumonia due to Hemophilus influenzae Is this a current diagnosis for this admission?: Yes (3) Pneumonia involving right lung Qualifiers: Pneumonia type: due to unspecified organism Lung location: upper lobe of lung Qualified Code(s): J18.1 - Lobar pneumonia, unspecified organism Is this a current diagnosis for this admission?: Yes (4) Pulmonary fibrosis Is this a current diagnosis for this admission?: Yes (5) Chronic obstructive pulmonary disease Qualifiers: COPD type: unspecified COPD Qualified Code(s): J44.9 - Chronic obstructive pulmonary disease, unspecified Is this a current diagnosis for this admission?: Yes
[2017-10-10 23:36] LABS: HSV I DNA Negative (Negative)
[2017-10-11] MEDS: HYDROMORPHONE HCL INJ/PF 2 MG/ML AMPULE IV PRN ×5 (01:51→19:39)
[2017-10-11] MEDS: LANSOPRAZOLE 30 MG TAB.RAP.DR PO SCH (05:12)
[2017-10-11] MEDS: GABAPENTIN 300 MG CAPSULE PO SCH ×3 (05:12→21:32)
[2017-10-11 07:08] LABS: ABSOLUTE EOSINOPHILS # (AUTO) 0.3 10^3/uL (0.0-0.6); ABSOLUTE MONOCYTES (AUTO) 1.2 10^3/uL (0.1-1.4); TOTAL CELLS COUNTED % (AUTO) 100 %
[2017-10-11 07:18] LABS: ABSOLUTE BASOPHILS # (AUTO) 0.1 10^3/uL (0.0-0.2); ABSOLUTE LYMPHOCYTES (AUTO) 1.3 10^3/uL (0.5-4.7); ABSOLUTE NEUT (AUTO) 12.8 10^3/uL (1.7-8.2); BASOPHILS % (AUTO) 0.4 % (0-2); EOSINOPHILS % (AUTO) 1.8 % (0-6); HEMOGLOBIN 9.6 g/dL (13.5-17.0); LYMPHOCYTES % (AUTO) 8.3 % (13-45); MEAN CORPUSCULAR HEMOGLOBIN 25.7 pg (27.0-33.4); MEAN CORPUSCULAR HGB CONC 32.2 g/dL (32.0-36.0); MEAN CORPUSCULAR VOLUME 80 fl (80-97); MONOCYTES % (AUTO) 7.6 % (3-13); PLATELET COUNT 351 10^3/uL (150-450); RED BLOOD COUNT 3.75 10^6/uL (4.35-5.55); RED CELL DISTRIBUTION WIDTH 16.3 % (11.5-14.0); SEGMENTED NEUTROPHILS % (AUTO) 81.9 % (42-78); WHITE BLOOD COUNT 15.6 10^3/uL (4.0-10.5)
[2017-10-11 07:22] LABS: ANION GAP 10 (5-19); ASPARTATE AMINO TRANSFERASE 19 U/L (17-59); BLOOD UREA NITROGEN 12 mg/dL (7-20); CALCIUM 9.3 mg/dL (8.4-10.2); CARBON DIOXIDE 30 mmol/L (22-30); CHLORIDE 95 mmol/L (98-107); GLUCOSE 97 mg/dL (75-110); POTASSIUM 4.4 mmol/L (3.6-5.0); SODIUM 134.6 mmol/L (137-145)
[2017-10-11 07:52] LABS: ALANINE AMINOTRANSFERASE 25 U/L (21-72); ALBUMIN 3.5 g/dL (3.5-5.0); ALKALINE PHOSPHATASE 89 U/L (38-126); TOTAL PROTEIN 6.2 g/dL (6.3-8.2)
[2017-10-11 08:01] LABS: BILIRUBIN,TOTAL < 0.1 mg/dL (0.2-1.3)
[2017-10-11] MEDS: IPRATROPIUM/ALBUTEROL 0.5-2.5 MG/3 ML AMPUL NEB SCH ×2 (09:13→14:21)
[2017-10-11] MEDS: ACYCLOVIR 200 MG CAPSULE PO SCH ×4 (09:36→21:33)
[2017-10-11] MEDS: METOPROLOL SUCCINATE 25 MG TAB.SR.24H PO SCH (09:36)
[2017-10-11] MEDS: CLONIDINE HCL 0.1 MG TABLET PO SCH ×2 (09:36→21:32)
[2017-10-11] MEDS: CEFEPIME HCL 2 GM in DEXTROSE 5%-WATER 50 ML IV SCH ×2 (09:36→21:33)
[2017-10-11] MEDS: ARIPIPRAZOLE 2 MG TABLET PO SCH (09:36)
[2017-10-11] MEDS: LISINOPRIL 10 MG TABLET PO SCH ×2 (09:36→21:32)
[2017-10-11] MEDS: HYDROCHLOROTHIAZIDE 12.5 MG CAPSULE PO SCH ×2 (09:36→21:33)
[2017-10-11] MEDS: SERTRALINE HCL 50 MG TABLET PO SCH ×2 (09:36→21:32)
[2017-10-11] MEDS: ACETAMINOPHEN WITH CODEINE #3 TABLET PO PRN (09:42)
[2017-10-11 14:48] LABS: HSV II DNA Negative (Negative)
[2017-10-11] MEDS: LEVOFLOXACIN 750 MG TABLET PO SCH (17:13)
[2017-10-11] MEDS: NORMAL SALINE 1000 ML 1,000 ML IV PRN (17:53)
--- NOTE | 2017-10-11 19:35 | PDOC PROGRESS REPORT ---
Subjective Progress Note for:: 10/11/17 Subjective:: Patient was seen by the bedside, he feels better today compared to previous days Reason For Visit: PNA,COPD Physical Exam Vital Signs: Temp Pulse Resp BP Pulse Ox 99.0 F 78 18 103/55 L 91 L 10/11/17 16:00 10/11/17 16:00 10/11/17 16:00 10/11/17 16:00 10/11/17 16:00 Intake & Output 10/10/17 10/11/17 10/12/17 06:59 06:59 06:59 Intake Total 2897 2740 1600 Output Total 1950 1200 450 Balance 947 1540 1150 General appearance: PRESENT: no acute distress, well-developed, well-nourished Head exam: PRESENT: atraumatic, normocephalic Eye exam: ABSENT: scleral icterus Ear exam: PRESENT: normal external ear exam Mouth exam: PRESENT: moist, tongue midline Neck exam: PRESENT: full ROM Respiratory exam: PRESENT: rhonchi Cardiovascular exam: PRESENT: RRR, +S1, +S2 Vascular exam: PRESENT: normal capillary refill GI/Abdominal exam: PRESENT: soft Rectal exam: PRESENT: deferred Neurological exam: PRESENT: alert Psychiatric exam: PRESENT: appropriate affect, normal mood Skin exam: PRESENT: dry, intact, warm. ABSENT: cyanosis, rash Results Laboratory Results: 10/11/17 06:50 10/11/17 06:50 10/11/17 10/11/17 06:50 06:50 WBC 15.6 H RBC 3.75 L Hgb 9.6 L Hct 30.0 L MCV 80 MCH 25.7 L MCHC 32.2 RDW 16.3 H Plt Count 351 Seg Neutrophils % 81.9 H Lymphocytes % 8.3 L Monocytes % 7.6 Eosinophils % 1.8 Basophils % 0.4 Absolute Neutrophils 12.8 H Absolute Lymphocytes 1.3 Absolute Monocytes 1.2 Absolute Eosinophils 0.3 Absolute Basophils 0.1 Sodium 134.6 L Potassium 4.4 Chloride 95 L Carbon Dioxide 30 Anion Gap 10 BUN 12 Creatinine 0.64 Est GFR ( Amer) > 60 Est GFR (Non-Af Amer) > 60 Glucose 97 Calcium 9.3 Total Bilirubin < 0.1 L AST 19 ALT 25 Alkaline Phosphatase 89 Total Protein 6.2 L Albumin 3.5 10/08/17 14:45 Lip Herpes Simplex Culture & Type - Final Impressions: Chest CT 10/07/17 13:26 IMPRESSION: Right posterior costophrenic sulcus consolidation, atelectasis versus pneumonia Chronic lung parenchymal findings including obstructive disease, pulmonary fibrosis, and rounded atelectasis. Multiple calcific pleural plaques without pleural effusion Heavily calcified coronary arteries Assessment & Plan - Diagnosis (1) Acute hypoxemic respiratory failure Is this a current diagnosis for this admission?: Yes (2) Pneumonia due to hemophilus influenzae Qualifiers: Laterality: right Lung location: middle lobe of lung Qualified Code(s): J14 - Pneumonia due to Hemophilus influenzae Is this a current diagnosis for this admission?: Yes (3) Pneumonia involving right lung Qualifiers: Pneumonia type: due to unspecified organism Lung location: upper lobe of lung Qualified Code(s): J18.1 - Lobar pneumonia, unspecified organism Is this a current diagnosis for this admission?: Yes (4) Pulmonary fibrosis Is this a current diagnosis for this admission?: Yes (5) Chronic obstructive pulmonary disease Qualifiers: COPD type: unspecified COPD Qualified Code(s): J44.9 - Chronic obstructive pulmonary disease, unspecified Is this a current diagnosis for this admission?: Yes (6) SIADH (syndrome of inappropriate ADH production) Is this a current diagnosis for this admission?: Yes
[2017-10-11] MEDS: ZOLPIDEM TARTRATE 5 MG TABLET PO SCH (21:32)
[2017-10-12] MEDS: HYDROMORPHONE HCL INJ/PF 2 MG/ML AMPULE IV PRN ×5 (01:05→22:34)
[2017-10-12] MEDS: LANSOPRAZOLE 30 MG TAB.RAP.DR PO SCH (05:31)
[2017-10-12] MEDS: GABAPENTIN 300 MG CAPSULE PO SCH ×3 (05:31→22:29)
[2017-10-12] MEDS: ARIPIPRAZOLE 2 MG TABLET PO SCH (09:42)
[2017-10-12] MEDS: ACYCLOVIR 200 MG CAPSULE PO SCH ×4 (09:42→22:29)
[2017-10-12] MEDS: SERTRALINE HCL 50 MG TABLET PO SCH ×2 (09:43→22:30)
[2017-10-12] MEDS: HYDROCHLOROTHIAZIDE 12.5 MG CAPSULE PO SCH ×2 (09:43→22:30)
[2017-10-12] MEDS: METOPROLOL SUCCINATE 25 MG TAB.SR.24H PO SCH (09:44)
[2017-10-12] MEDS: CLONIDINE HCL 0.1 MG TABLET PO SCH ×2 (09:44→22:30)
[2017-10-12] MEDS: LISINOPRIL 10 MG TABLET PO SCH ×2 (09:44→22:30)
[2017-10-12] MEDS: CEFEPIME HCL 2 GM in DEXTROSE 5%-WATER 50 ML IV SCH ×2 (09:51→22:36)
[2017-10-12 11:42] LABS: ABSOLUTE BASOPHILS # (AUTO) 0.2 10^3/uL (0.0-0.2); ABSOLUTE EOSINOPHILS # (AUTO) 0.5 10^3/uL (0.0-0.6); ABSOLUTE LYMPHOCYTES (AUTO) 1.5 10^3/uL (0.5-4.7); ABSOLUTE MONOCYTES (AUTO) 1.2 10^3/uL (0.1-1.4); ABSOLUTE NEUT (AUTO) 16.6 10^3/uL (1.7-8.2); BASOPHILS % (AUTO) 0.8 % (0-2); EOSINOPHILS % (AUTO) 2.3 % (0-6); HEMATOCRIT 30.3 % (37.9-51.0); HEMOGLOBIN 9.9 g/dL (13.5-17.0); LYMPHOCYTES % (AUTO) 7.4 % (13-45); MEAN CORPUSCULAR HEMOGLOBIN 26.2 pg (27.0-33.4); MEAN CORPUSCULAR HGB CONC 32.7 g/dL (32.0-36.0); MEAN CORPUSCULAR VOLUME 80 fl (80-97); MONOCYTES % (AUTO) 6.1 % (3-13); PLATELET COUNT 395 10^3/uL (150-450); RED BLOOD COUNT 3.79 10^6/uL (4.35-5.55); RED CELL DISTRIBUTION WIDTH 16.4 % (11.5-14.0); SEGMENTED NEUTROPHILS % (AUTO) 83.4 % (42-78); TOTAL CELLS COUNTED % (AUTO) 100 %; WHITE BLOOD COUNT 19.9 10^3/uL (4.0-10.5)
[2017-10-12 12:00] LABS: ALANINE AMINOTRANSFERASE 28 U/L (21-72); ALBUMIN 3.7 g/dL (3.5-5.0); ALKALINE PHOSPHATASE 89 U/L (38-126); ANION GAP 14 (5-19); ASPARTATE AMINO TRANSFERASE 16 U/L (17-59); BILIRUBIN,DIRECT 0.1 mg/dL (0.0-0.4); BILIRUBIN,TOTAL 0.1 mg/dL (0.2-1.3); BLOOD UREA NITROGEN 13 mg/dL (7-20); CALCIUM 9.1 mg/dL (8.4-10.2); CARBON DIOXIDE 26 mmol/L (22-30); CHLORIDE 93 mmol/L (98-107); GLUCOSE 99 mg/dL (75-110); POTASSIUM 4.6 mmol/L (3.6-5.0); SODIUM 133.3 mmol/L (137-145); TOTAL PROTEIN 6.4 g/dL (6.3-8.2)
[2017-10-12] MEDS: ACETAMINOPHEN WITH CODEINE #3 TABLET PO PRN (13:26)
--- NOTE | 2017-10-12 17:33 | PDOC PROGRESS REPORT ---
Subjective Progress Note for:: 10/12/17 Subjective:: He cannot maintain adequate oxygenation on ambulation on room air, he wants to go home, he was offered home oxygen but he said he lives with his son a chain smoker, the son will not allowed any oxygen therapy in his residence. Reason For Visit: PNA,COPD Physical Exam Vital Signs: Temp Pulse Resp BP Pulse Ox 98.8 F 70 18 130/60 H 91 L 10/12/17 15:55 10/12/17 15:55 10/12/17 15:55 10/12/17 15:55 10/12/17 15:55 Intake & Output 10/11/17 10/12/17 10/13/17 06:59 06:59 06:59 Intake Total 2740 2630 Output Total 1200 1625 Balance 1540 1005 General appearance: PRESENT: mild distress Eye exam: PRESENT: PERRLA Respiratory exam: PRESENT: decreased breath sounds Cardiovascular exam: PRESENT: +S1, +S2 GI/Abdominal exam: PRESENT: soft Neurological exam: PRESENT: alert, CN II-XII grossly intact Results Laboratory Results: 10/12/17 11:21 10/12/17 11:21 10/12/17 10/12/17 11:21 11:21 WBC 19.9 H RBC 3.79 L Hgb 9.9 L Hct 30.3 L MCV 80 MCH 26.2 L MCHC 32.7 RDW 16.4 H Plt Count 395 Seg Neutrophils % 83.4 H Lymphocytes % 7.4 L Monocytes % 6.1 Eosinophils % 2.3 Basophils % 0.8 Absolute Neutrophils 16.6 H Absolute Lymphocytes 1.5 Absolute Monocytes 1.2 Absolute Eosinophils 0.5 Absolute Basophils 0.2 Sodium 133.3 L Potassium 4.6 Chloride 93 L Carbon Dioxide 26 Anion Gap 14 BUN 13 Creatinine 0.74 Est GFR ( Amer) > 60 Est GFR (Non-Af Amer) > 60 Glucose 99 Calcium 9.1 Total Bilirubin 0.1 L AST 16 L ALT 28 Alkaline Phosphatase 89 Total Protein 6.4 Albumin 3.7 10/08/17 14:45 Lip Herpes Simplex Culture & Type - Final Impressions: Chest CT 10/07/17 13:26 IMPRESSION: Right posterior costophrenic sulcus consolidation, atelectasis versus pneumonia Chronic lung parenchymal findings including obstructive disease, pulmonary fibrosis, and rounded atelectasis. Multiple calcific pleural plaques without pleural effusion Heavily calcified coronary arteries Assessment & Plan - Diagnosis (1) Acute hypoxemic respiratory failure Is this a current diagnosis for this admission?: Yes (2) Pneumonia due to hemophilus influenzae Qualifiers: Laterality: right Lung location: middle lobe of lung Qualified Code(s): J14 - Pneumonia due to Hemophilus influenzae Is this a current diagnosis for this admission?: Yes (3) Pneumonia involving right lung Qualifiers: Pneumonia type: due to unspecified organism Lung location: upper lobe of lung Qualified Code(s): J18.1 - Lobar pneumonia, unspecified organism Is this a current diagnosis for this admission?: Yes (4) Pulmonary fibrosis Is this a current diagnosis for this admission?: Yes (5) Chronic obstructive pulmonary disease Qualifiers: COPD type: unspecified COPD Qualified Code(s): J44.9 - Chronic obstructive pulmonary disease, unspecified Is this a current diagnosis for this admission?: Yes (6) SIADH (syndrome of inappropriate ADH production) Is this a current diagnosis for this admission?: Yes - Plan Summary Plan Summary: Continue treatment
[2017-10-12] MEDS: LEVOFLOXACIN 750 MG TABLET PO SCH (17:48)
[2017-10-12] MEDS: ZOLPIDEM TARTRATE 5 MG TABLET PO SCH (22:29)
[2017-10-13] MEDS: IPRATROPIUM/ALBUTEROL 0.5-2.5 MG/3 ML AMPUL NEB PRN ×2 (00:35→16:25)
[2017-10-13] MEDS: HYDROMORPHONE HCL INJ/PF 2 MG/ML AMPULE IV PRN ×5 (04:06→21:04)
[2017-10-13] MEDS: GABAPENTIN 300 MG CAPSULE PO SCH ×3 (06:20→21:57)
[2017-10-13] MEDS: LANSOPRAZOLE 30 MG TAB.RAP.DR PO SCH (06:20)
[2017-10-13] MEDS: SERTRALINE HCL 50 MG TABLET PO SCH ×2 (09:41→21:57)
[2017-10-13] MEDS: HYDROCHLOROTHIAZIDE 12.5 MG CAPSULE PO SCH ×2 (09:41→21:57)
[2017-10-13] MEDS: ACYCLOVIR 200 MG CAPSULE PO SCH ×4 (09:41→21:57)
[2017-10-13] MEDS: METOPROLOL SUCCINATE 25 MG TAB.SR.24H PO SCH (09:41)
[2017-10-13] MEDS: LISINOPRIL 10 MG TABLET PO SCH ×2 (09:42→21:57)
[2017-10-13] MEDS: CLONIDINE HCL 0.1 MG TABLET PO SCH ×2 (09:42→21:57)
[2017-10-13] MEDS: CEFEPIME HCL 2 GM in DEXTROSE 5%-WATER 50 ML IV SCH ×2 (11:35→22:05)
[2017-10-13] MEDS: LEVOFLOXACIN 750 MG TABLET PO SCH (17:34)
--- NOTE | 2017-10-13 21:46 | PDOC PROGRESS REPORT ---
Subjective Progress Note for:: 10/13/17 Subjective:: Patient was seen by the bedside ,the challenge is the home oxygen,the son refuse for him to have home oxygen Reason For Visit: PNA,COPD Physical Exam Vital Signs: Temp Pulse Resp BP Pulse Ox 98.3 F 77 20 122/54 L 90 L 10/13/17 20:15 10/13/17 20:15 10/13/17 20:15 10/13/17 20:15 10/13/17 20:15 Intake & Output 10/12/17 10/13/17 10/14/17 06:59 06:59 06:59 Intake Total 2630 2450 2153 Output Total 1625 675 200 Balance 1005 1775 1953 General appearance: PRESENT: no acute distress Head exam: PRESENT: atraumatic, normocephalic Eye exam: PRESENT: PERRLA Ear exam: PRESENT: normal external ear exam Neck exam: PRESENT: full ROM Respiratory exam: PRESENT: clear to auscultation j[place] Cardiovascular exam: PRESENT: RRR, +S1, +S2 Vascular exam: PRESENT: normal capillary refill GI/Abdominal exam: PRESENT: normal bowel sounds, soft Rectal exam: PRESENT: deferred Neurological exam: PRESENT: alert, awake, oriented to person, oriented to place , oriented to time, oriented to situation, CN II-XII grossly intact. ABSENT: motor sensory deficit Psychiatric exam: PRESENT: appropriate affect, normal mood. ABSENT: homicidal ideation, suicidal ideation Skin exam: PRESENT: dry, intact, warm Results Laboratory Results: 10/12/17 11:21 10/12/17 11:21 Impressions: Chest CT 10/07/17 13:26 IMPRESSION: Right posterior costophrenic sulcus consolidation, atelectasis versus pneumonia Chronic lung parenchymal findings including obstructive disease, pulmonary fibrosis, and rounded atelectasis. Multiple calcific pleural plaques without pleural effusion Heavily calcified coronary arteries Assessment & Plan - Diagnosis (1) Acute hypoxemic respiratory failure Is this a current diagnosis for this admission?: Yes (2) Pneumonia due to hemophilus influenzae Qualifiers: Laterality: right Lung location: middle lobe of lung Qualified Code(s): J14 - Pneumonia due to Hemophilus influenzae Is this a current diagnosis for this admission?: Yes (3) Pneumonia involving right lung Qualifiers: Pneumonia type: due to unspecified organism Lung location: upper lobe of lung Qualified Code(s): J18.1 - Lobar pneumonia, unspecified organism Is this a current diagnosis for this admission?: Yes (4) Pulmonary fibrosis Is this a current diagnosis for this admission?: Yes (5) Chronic obstructive pulmonary disease Qualifiers: COPD type: unspecified COPD Qualified Code(s): J44.9 - Chronic obstructive pulmonary disease, unspecified Is this a current diagnosis for this admission?: Yes (6) SIADH (syndrome of inappropriate ADH production) Is this a current diagnosis for this admission?: Yes
[2017-10-13] MEDS: ZOLPIDEM TARTRATE 5 MG TABLET PO SCH (21:57)
[2017-10-14] MEDS: GABAPENTIN 300 MG CAPSULE PO SCH ×2 (05:33→14:17)
[2017-10-14] MEDS: LANSOPRAZOLE 30 MG TAB.RAP.DR PO SCH (05:33)
[2017-10-14] MEDS: HYDROMORPHONE HCL INJ/PF 2 MG/ML AMPULE IV PRN ×3 (07:09→14:51)
[2017-10-14] MEDS: HYDROCHLOROTHIAZIDE 12.5 MG CAPSULE PO SCH (10:08)
[2017-10-14] MEDS: CEFEPIME HCL 2 GM in DEXTROSE 5%-WATER 50 ML IV SCH (10:09)
[2017-10-14] MEDS: LISINOPRIL 10 MG TABLET PO SCH (10:09)
[2017-10-14] MEDS: CLONIDINE HCL 0.1 MG TABLET PO SCH (10:09)
[2017-10-14] MEDS: SERTRALINE HCL 50 MG TABLET PO SCH (10:09)
[2017-10-14] MEDS: METOPROLOL SUCCINATE 25 MG TAB.SR.24H PO SCH (10:10)
[2017-10-14] MEDS: ACYCLOVIR 200 MG CAPSULE PO SCH ×2 (10:10→14:16)
--- NOTE | 2017-10-14 12:25 | PDOC DISCHARGE SUMMARY ---
General - Admit/Disc Date/PCP Admission Date/Primary Care Provider: 10/07/17 12:49 BEA GLASER MD Discharge Date: 10/14/17 - Discharge Diagnosis (1) Acute hypoxemic respiratory failure Is this a current diagnosis for this admission?: Yes (2) Pneumonia due to hemophilus influenzae Is this a current diagnosis for this admission?: Yes (3) Pneumonia involving right lung Is this a current diagnosis for this admission?: Yes (4) Pulmonary fibrosis Is this a current diagnosis for this admission?: Yes (5) Chronic obstructive pulmonary disease Is this a current diagnosis for this admission?: Yes (6) SIADH (syndrome of inappropriate ADH production) Is this a current diagnosis for this admission?: Yes - Additional Information Resuscitation Status: Full Code Discharge Diet: Regular Prescriptions: RX: Levofloxacin [Levaquin 750 mg Tablet] 750 mg PO QPM #14 tablet Home Medications: RX: Acetaminophen with Codeine [Tylenol #3 Tablet] 1 tab PO Q6HP PRN 10/07/17 RX: Aripiprazole [Abilify 2 mg Tablet] 2 mg PO DAILY 10/07/17 RX: Clobetasol Propionate [Clobetasol Propionate Cream] 1 applic TOP BID RX: Clonidine HCl [Catapres 0.1 mg Tablet] 0.1 mg PO BID 10/07/17 RX: Gabapentin [Neurontin 300 mg Capsule] 300 mg PO Q8 10/07/17 RX: Lisinopril/Hydrochlorothiazide [Zestoretic 20-12.5 mg Tablet] 1 tab PO Q12 10/07/17 RX: Metoprolol Succinate [Toprol Xl 25 mg Tab.sr] 25 mg PO DAILY 10/07/17 RX: Omeprazole 40 mg PO DAILY 10/07/17 RX: Piroxicam [Feldene] 20 mg PO DAILY 10/07/17 RX: Pramipexole Di-HCl [Mirapex 0.25 mg Tablet] 0.25 mg PO BID 10/07/17 RX: Sertraline HCl [Zoloft] 100 mg PO BID 10/07/17 RX: Zolpidem Tartrate [Ambien] 10 mg PO QHS 10/07/17 RX: Levofloxacin [Levaquin 750 mg Tablet] 750 mg PO QPM #14 tablet 10/14/17 History of Present Illness History of Present Illness: BRE BERNARD is a 66 year old male,He has a history of chronic obstructive pulmonary disease, a recalcitrant smoker he was seen in the office more than twice for treatment of bronchitis, flulike symptoms. He came to the office today for evaluation of cough, fever, blisters in the upper lip, shortness of breath. In the office he was evaluated he was coughing of tenacious yellowish sputum on auscultation ofhis chest there was crackles wheezes. He was admitted directly from the office into the hospital for further evaluation of his chest symptoms blood gas was done , pH is 7.48, PO2 60.7 PCO2 36.8, bicarbonate 26.5, FiO2 [address] chest without contrast was done he showed progressive development of peripheral pulmonary fibrosis with honey combing in the anterior aspect of the right upper lobe in the right posterior costophrenic sulcus there is a new consolidation that suggest pneumonia because can was gone. 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 He has hypoxemic respiratory failure requiring oxygen. He also have hyponatremia, of SIADH type. Patient improved with treatment, he was treated with IV antibiotic cefepime and Levaquin, he was discharged on home oxygen. Physical Exam Vital Signs: Temp Pulse Resp BP Pulse Ox 98.2 F 83 22 H 113/61 91 L 10/14/17 08:34 10/14/17 08:34 10/14/17 08:34 10/14/17 08:34 10/14/17 08:34 Intake & Output 10/13/17 10/14/17 10/15/17 06:59 06:59 06:59 Intake Total 2450 3593 Output Total 675 1900 Balance 1775 1693 General appearance: PRESENT: no acute distress, well-developed, well-nourished Head exam: PRESENT: atraumatic, normocephalic Eye exam: PRESENT: conjunctiva pink, EOMI, PERRLA Neck exam: PRESENT: full ROM Respiratory exam: PRESENT: clear to auscultation jessee Cardiovascular exam: PRESENT: RRR, +S1, +S2 Vascular exam: PRESENT: normal capillary refill GI/Abdominal exam: PRESENT: normal bowel sounds, soft Rectal exam: PRESENT: deferred Neurological exam: PRESENT: alert. ABSENT: motor sensory deficit Psychiatric exam: PRESENT: appropriate affect, normal mood Skin exam: PRESENT: dry, intact, warm Results Laboratory Results: 10/12/17 11:21 10/12/17 11:21 Impressions: Chest CT 10/07/17 13:26 IMPRESSION: Right posterior costophrenic sulcus consolidation, atelectasis versus pneumonia Chronic lung parenchymal findings including obstructive disease, pulmonary fibrosis, and rounded atelectasis. Multiple calcific pleural plaques without pleural effusion Heavily calcified coronary arteries
[2017-10-14 13:40] VITALS: BP 130/60
== END 2017-10-14 15:00 | disposition home or self-care (01) | DRG 193 ==
LOC: 4S 12:49 → 4N 10-12 19:35
PROVIDERS: ADMIT Internal Medicine; ATTEND Internal Medicine
PROC: 3E0234Z Introduction of Serum, Toxoid and Vaccine into Muscle, Percutaneous Approach (ICD-10-PCS; principal; 2017-10-14)
DX: J14 Pneumonia due to Hemophilus influenzae (principal); J96.01 Acute respiratory failure with hypoxia; E22.2 Syndrome of inappropriate secretion of antidiuretic hormone; J18.1 Lobar pneumonia, unspecified organism; J44.9 Chronic obstructive pulmonary disease, unspecified; J84.10 Pulmonary fibrosis, unspecified; I25.10 Atherosclerotic heart disease of native coronary artery without angina pectoris; I10 Essential (primary) hypertension; E78.5 Hyperlipidemia, unspecified; F17.210 Nicotine dependence, cigarettes, uncomplicated; Z23 Encounter for immunization
CPT/HCPCS: 36415; 36600; 71250; 80053; 81001; 82803; 83930; 83935; 84300; 85025; 85027; 87070; 87077; 87086; 87205; 87250; 87529; 90686; 94640; J0692; J1170; J1956; J3490; J7030; J7620

== ENCOUNTER → 2018-04-27 | Outpatient (CLI) | payer MEDICARE, MEDICAID ==
--- NOTE | 2018-04-27 11:45 | RADIOLOGY REPORT (SQ) ---
EXAM DESCRIPTION: HIP RIGHT AP/LATERAL COMPLETED DATE/TIME: 04/27/2018 10:59 am REASON FOR STUDY: PAIN IN RIGHT HIP R22.41 LOCALIZED SWELLING, MASS AND LUMP, RIGHT LOWER LIMB M54. 16 RADICULOPATHY, LUMBAR REGION M25.551 PAIN IN RIGHT HIP COMPARISON: None. NUMBER OF VIEWS: Two views. TECHNIQUE: AP pelvis and additional frog-leg view of the right hip. LIMITATIONS: None. FINDINGS: MINERALIZATION: Normal. RIGHT HIP: Mild subchondral sclerosis and cystic changes in the right femoral head and acetabular re gion. No acute fracture or dislocation. No fracture or dislocation. LEFT HIP: No fracture or dislocation. No worrisome bone lesions. PUBIS AND ISCHIUM: No fracture. PELVIS: No fracture. Pelvic vascular calcifications. SACRUM: No fracture or dislocation. No worrisome bone lesions. LOWER LUMBAR SPINE: No fracture or dislocation. No worrisome bone lesions. No significant disc disea se. SOFT TISSUES: No findings. OTHER: No other significant finding. IMPRESSION: 1 Mild degenerative changes involving the right hip. 2 No acute osseous findings. TECHNICAL DOCUMENTATION: JOB ID: [id number]- All Rights Reserved Reading location - IP/workstation name: [email or web address]
--- NOTE | 2018-04-27 12:59 | RADIOLOGY REPORT (SQ) ---
EXAM DESCRIPTION: CT LUMBAR SPINE WITHOUT COMPLETED DATE/TIME: 04/27/2018 10:40 am REASON FOR STUDY: RADICULOPATHY LUMBAR REGION R22.41 LOCALIZED SWELLING, MASS AND LUMP, RIGHT LOWER LIMB M54.16 RADICULOPATHY, LUMBAR REGION M25.551 PAIN IN RIGHT HIP COMPARISON: None. TECHNIQUE: Axial images acquired through the lumbar spine without intravenous contrast. Images revi ewed with lung, soft tissue and bone windows. Reconstructed coronal and sagittal MPR images reviewed . All images stored on PACS. All CT scanners at this facility use dose modulation, iterative reconstruction, and/or weight based d osing when appropriate to reduce radiation dose to as low as reasonably achievable (ALARA). [facility]: Dose Right [facility]: CareDose [facility]: Dose Right [facility]: Teradose 4D [facility]: Cognio RADIATION DOSE: CT Rad equipment meets quality standard of care and radiation dose reduction techniq ues were employed. CTDIvol: 28.9 mGy. DLP: 922 mGy-cm. mGy. LIMITATIONS: None. FINDINGS: SEGMENTATION: Normal. No transitional anatomy. ALIGNMENT: Slight anterolisthesis of L3 relative to L2. VERTEBRAL BODIES: No fractures. No dislocation. No acute findings. DISCS: No significant protrusions. Study limited by lack of intrathecal contrast. PEDICLES, TRANSVERSE PROCESSES: No fractures. No dislocation. No acute findings. FACETS, POSTERIOR ELEMENTS: Facet arthropathy L3- 4 through L5-S1. HARDWARE: None in the spine. VISUALIZED RIBS: No fractures. SOFT TISSUES: Calcified ectatic aorta. OTHER: Osteopenia. IMPRESSION: Facet arthropathy. No acute findings. TECHNICAL DOCUMENTATION: JOB ID: [id number] Quality ID # [id number]: Final reports with documentation of one or more dose reduction techniques (e.g., Au tomated exposure control, adjustment of the mA and/or kV according to patient size, use of iterative reconstruction technique) 2010 [employer]- All Rights Reserved Reading location - IP/workstation name: [email or web address]
--- NOTE | 2018-04-27 15:12 | XCELERA REPORT ---
[address] [place] [facility] [address] Lower Extremity Venous Evaluation Procedure: Color flow and duplex imaging of the veins of the right lower extremity as well as the left Common Femoral vein. Right Sided Venous Evaluation Normal vessel filling wall to wall, compression and augmentation as well as Colour flow down to the infrageniculate veins. Left Sided Venous Evaluation The left common femoral vein is fully compressible. Spontaneous and phasic flow is present in the left common femoral vein. Interpretation Summary No duplex evidence of DVT or obstruction in the right lower extremity nor in the left Common Femoral vein. Name: BRE BERNARD Age: 67 yrs Gender: Male : 1950 Patient Status: Outpatient Patient Location: Study Date: 04/27/2018 11:28 AM Reason For Study: RLE SWELLING Ordering Physician: BEA GLASER Performed By: Johnathon Antonio : BEA GLASER > Germán Melton
== END ==
LOC: SP 10:22
PROVIDERS: ATTEND Internal Medicine
DX: M54.16 Radiculopathy, lumbar region (principal); M25.551 Pain in right hip; R22.41 Localized swelling, mass and lump, right lower limb
CPT/HCPCS: 72131; 93971

== ENCOUNTER → 2018-10-15 | Outpatient (CLI) | payer MEDICARE, MEDICAID ==
--- NOTE | 2018-10-15 10:13 | RADIOLOGY REPORT (SQ) ---
EXAM DESCRIPTION: MRI LUMBAR SPINE WITHOUT COMPLETED DATE/TIME: 10/15/2018 9:21 am REASON FOR STUDY: LUMBAR RADICULOPATHY M54.16 RADICULOPATHY, LUMBAR REGION COMPARISON: None. TECHNIQUE: Sagittal and Axial imaging includes T1, T2, STIR and gradient echo sequences. Coronal T2/ HASTE imaging. LIMITATIONS: None. FINDINGS: VISUALIZED UPPER ABDOMEN: Bilateral renal cortical cysts. SEGMENTATION: No transitional anatomy. The lowest well-developed disc space is labeled L5-S1. ALIGNMENT: Anatomic. VERTEBRAE: Intact. BONE MARROW: Normal. No marrow replacement or reactive changes. DISC SIGNAL: Diffuse decreased T2 weighted intervertebral disc signal throughout the lumbar spine. POSTERIOR ELEMENTS: Generally intact. No pars defect evident. HARDWARE: None in the spine. CORD AND CONUS: Normal in size and signal intensity. Conus at the mid L1 level. SOFT TISSUES: No aortic aneurysm seen. No bulky retroperitoneal adenopathy or mass. No paraspinal mas s or fluid. T11-12: Mild posterior disc bulge and bony spurring, mild facet hypertrophy. No central or foramina l encroachment. T12-L1: Mild bilateral facet hypertrophy. No central or foraminal encroachment. L1-L2: Mild bilateral facet hypertrophy. No central or foraminal encroachment. L2-L3: Minimal posterior disc bulge, mild bilateral facet and ligament hypertrophy. Borderline centr al canal narrowing, mild bilateral inferior foraminal narrowing without exiting L2 nerve root impinge ment L3-L4: Minimal posterior disc bulge, moderate bilateral facet and ligament hypertrophy. Borderline c entral canal narrowing, mild bilateral inferior foraminal narrowing without exiting L3 nerve root imp ingement. Mild fluid in the left L3-4 facet joint. L4-L5: Minimal posterior disc bulge, moderate bilateral facet and ligament hypertrophy. Borderline c entral canal narrowing. Mild bilateral inferior foraminal narrowing without exiting L4 nerve root im pingement. Sagittal T2 weighted images demonstrate small disc margin annular tear along the left for aminal and lateral disc margin best shown on axial T2 image 25 and sagittal image 11. L5-S1: Mild diffuse posterior disc bulging, mild bilateral facet and ligament hypertrophy. No centra l or foraminal encroachment. SACRUM: Visualized upper sacrum intact. OTHER: No other significant findings. IMPRESSION: Mild diffuse degenerative changes as above. TECHNICAL DOCUMENTATION: JOB ID: [id number] [employer]- All Rights Reserved Reading location - IP/workstation name: [email or web address]
== END ==
LOC: RAD 08:38
PROVIDERS: ATTEND Internal Medicine
DX: M51.16 Intervertebral disc disorders with radiculopathy, lumbar region (principal)
CPT/HCPCS: 72148

== ENCOUNTER 2020-02-16 09:48 | Inpatient (IN) | payer MEDICARE, MEDICAID ==
[2020-02-16 11:11] LABS: HEMOGLOBIN 11.3 g/dL (13.5-17.0); MEAN CORPUSCULAR HEMOGLOBIN 24.6 pg (27.0-33.4); MEAN CORPUSCULAR HGB CONC 32.4 g/dL (32.0-36.0); MEAN CORPUSCULAR VOLUME 76 fl (80-97); PLATELET COUNT 293 10^3/uL (150-450); RED BLOOD COUNT 4.61 10^6/uL (4.35-5.55); RED CELL DISTRIBUTION WIDTH 18.6 % (11.5-14.0); WHITE BLOOD COUNT 9.2 10^3/uL (4.0-10.5)
[2020-02-16 11:34] LABS: ALBUMIN 4.6 g/dL (3.5-5.0); ALKALINE PHOSPHATASE 86 U/L (38-126); ANION GAP 10 (5-19); ASPARTATE AMINO TRANSFERASE 27 U/L (17-59); BILIRUBIN,DIRECT 0.4 mg/dL (0.0-0.4); BILIRUBIN,TOTAL 0.4 mg/dL (0.2-1.3); BLOOD UREA NITROGEN 21 mg/dL (7-20); CALCIUM 8.7 mg/dL (8.4-10.2); CARBON DIOXIDE 27 mmol/L (22-30); CHLORIDE 96 mmol/L (98-107); GLUCOSE 97 mg/dL (75-110); POTASSIUM 4.9 mmol/L (3.6-5.0); TOTAL PROTEIN 7.6 g/dL (6.3-8.2)
[2020-02-16 12:07] LABS: APPEARANCE,URINE CLEAR; BILIRUBIN,URINE NEGATIVE (NEGATIVE); COLOR,URINE YELLOW; GLUCOSE, URINE NEGATIVE (NEGATIVE); KETONES,URINE NEGATIVE (NEGATIVE); LEUKOCYTE ESTERASE,URINE NEGATIVE (NEGATIVE); NITRITE,URINE NEGATIVE (NEGATIVE); PROTEIN,URINE NEGATIVE (NEGATIVE); URINE SPECIFIC GRAVITY 1.013; UROBILINOGEN,URINE NEGATIVE mg/dL (<2.0)
--- NOTE | 2020-02-16 12:11 | RADIOLOGY REPORT (SQ) ---
EXAM DESCRIPTION: FOOT LEFT COMPLETE IMAGES COMPLETED DATE/TIME: 02/16/2020 11:46 am REASON FOR STUDY: foot ulcer, eval for osteomyelitis COMPARISON: None. NUMBER OF VIEWS: Three views. TECHNIQUE: AP, lateral and oblique radiographic images acquired of the left foot. LIMITATIONS: None. FINDINGS: MINERALIZATION: Normal. BONES: No acute fracture or dislocation. No worrisome bone lesions. JOINTS: Hallux valgus. SOFT TISSUES: No soft tissue swelling. No foreign body. OTHER: No other significant finding. IMPRESSION: Hallux valgus. Foot ulcer. No evidence of osteomyelitis. TECHNICAL DOCUMENTATION: JOB ID: [id number] 2010 [employer]- All Rights Reserved Reading location - IP/workstation name: [email or web address]
[2020-02-16] MEDS ORDERED: (PENDING PHARMACY ID) (Zolpidem Tartrate [Ambien] 10 MG) PO PRN (14:55)
[2020-02-16] MEDS ORDERED: ACETAMINOPHEN WITH CODEINE PO PRN (14:55)
[2020-02-16] MEDS ORDERED: (PENDING PHARMACY ID) (Lisinopril/Hydrochlorothiazide [Zestoretic 20-12.5 Mg Tablet] 1 TAB PO SCH (15:00)
[2020-02-16] MEDS: CLINDAMYCIN 600 MG/D5W RTU 600 MG/50 ML RTUPB IV SCH ×3 (16:17→17:35)
[2020-02-16] MEDS: METOPROLOL SUCCINATE 25 MG TAB.SR.24H PO SCH (17:34)
[2020-02-16] MEDS: CLONIDINE HCL 0.1 MG TABLET PO SCH (17:34)
[2020-02-16] MEDS: PRAMIPEXOLE DI-HCL 0.25 MG TABLET PO SCH (17:34)
[2020-02-16] MEDS: GABAPENTIN 300 MG CAPSULE PO SCH ×2 (17:34→21:21)
[2020-02-16] MEDS: [UNRECOGNIZED DRUG - OTHER] PO SCH (17:35)
[2020-02-16] MEDS: ACETAMINOPHEN WITH CODEINE #3 TABLET PO PRN (17:42)
--- NOTE | 2020-02-16 20:00 | PDOC CONSULTATION ---
Consultation Consult Date: 02/16/20 Provider Consulted: SURGICAL SURGICALIST Consult reason:: Toe ulcer History of Present Illness Admission Date/PCP: 02/16/20 09:48 BEA GLASER MD Patient complains of: Pain in the left foot History of Present Illness: BRE BERNARD is a 69 year old male seen in consultation at the request of Dr. Glaser. The patient has an ulcer to the left first metatarsal, plantar surface. He denies drainage. He does report pain. His pain is situated over the first metatarsal on the left foot. He reports his pain is 5 out of 10. It does not radiate. He denies fevers or chills. He is not a diabetic. He does have deformity of the foot, which he reports he was "born with". Patient denies chest pain, shortness of breath, nausea, vomiting, abdominal pain, dizziness, orthostasis, headache, malaise, or fatigue. Past Medical History Cardiac Medical History: Reports: Coronary Artery Disease, Myocardial Infarction, Hyperlipidema, Hypertension Neurological Medical History: Denies: Seizures GI Medical History: Reports: Gastroesophageal Reflux Disease Psychiatric Medical History: Reports: Depression Social History Smoking Status: Current Every Day Smoker Cigarettes Packs Per Day: 0.7 Electronic Cigarette use?: No Frequency of Alcohol Use: Heavy Hx Recreational Drug Use: Yes Drugs: Cocaine, Marijuana Hx Prescription Drug Abuse: Yes Family History Family History: Reviewed & Not Pertinent Parental Family History Reviewed: Yes Children Family History Reviewed: Yes Sibling(s) Family History Reviewed.: Yes Medication/Allergy Home Medications: Clonidine HCl [Catapres 0.1 mg Tablet] 0.1 mg PO BID 10/07/17 Gabapentin [Neurontin 300 mg Capsule] 300 mg PO Q8 10/07/17 Lisinopril/Hydrochlorothiazide [Zestoretic 20-12.5 mg Tablet] 1 tab PO Q12 10/07/17 Metoprolol Succinate [Toprol Xl 25 mg Tab.sr] 25 mg PO DAILY 10/07/17 Omeprazole 40 mg PO DAILY 10/07/17 Piroxicam [Feldene] 20 mg PO DAILY 10/07/17 Pramipexole Di-HCl [Mirapex 0.25 mg Tablet] 0.25 mg PO BID 10/07/17 Sertraline HCl [Zoloft] 100 mg PO BID 10/07/17 Zolpidem Tartrate [Ambien] 10 mg PO HSP PRN 10/07/17 Acetaminophen with Codeine [Acetaminophen-Cod #4 Tablet] 1 each PO Q6HP PRN 02/16/20 Clindamycin HCl 300 mg PO Q8 02/16/20 Allergies/Adverse Reactions: No Known Allergies Allergy (Verified 01/18/16 13:02) Review of Systems Constitutional: ABSENT: anorexia, chills Eyes: ABSENT: visual disturbances Ears: ABSENT: hearing changes Nose, Mouth, and Throat: ABSENT: sore throat Cardiovascular: ABSENT: chest pain Respiratory: ABSENT: cough, dyspnea Gastrointestinal: ABSENT: abdominal pain Genitourinary: ABSENT: dysuria Musculoskeletal: ABSENT: back pain Integumentary: PRESENT: wounds - Left foot, plantar surface, first metatarsal head Neurological: ABSENT: confusion, convulsions, dizziness Psychiatric: ABSENT: anxiety, depression Endocrine: ABSENT: cold intolerance, heat intolerance Hematologic/Lymphatic: ABSENT: easy bleeding, easy bruising Physical Exam Vital Signs: Temp Pulse Resp BP Pulse Ox 97.9 F 65 20 161/82 H 93 02/16/20 10:07 02/16/20 10:07 02/16/20 10:07 02/16/20 10:07 02/16/20 10:07 Intake & Output 02/15/20 02/16/20 02/17/20 06:59 06:59 06:59 Output Total 200 Balance -200 Weight 94.3 kg General appearance: PRESENT: no acute distress, cooperative Head exam: PRESENT: atraumatic, normocephalic Eye exam: PRESENT: EOMI, PERRLA. ABSENT: scleral icterus Mouth exam: PRESENT: moist, neck supple Neck exam: ABSENT: meningismus, tenderness, thyromegaly, tracheal deviation Respiratory exam: PRESENT: unlabored. ABSENT: tachypnea, wheezes Cardiovascular exam: ABSENT: tachycardia Pulses: PRESENT: other - Pulses not palpable, bilateral lower extremities. Vascular exam: PRESENT: other - Feet are warm. Motor and sensory function are grossly intact. GI/Abdominal exam: PRESENT: soft. ABSENT: distended, firm, tenderness Rectal exam: PRESENT: deferred Extremities exam: PRESENT: other - Wound to the left plantar foot, first metatarsal head. It is clean appearing without drainage. There is no erythema or induration.. ABSENT: clubbing Neurological exam: PRESENT: alert, awake, oriented to person, oriented to place, oriented to time, oriented to situation, CN II-XII grossly intact Psychiatric exam: ABSENT: agitated, anxious, depressed Skin exam: ABSENT: cyanosis, erythema, jaundice Results Laboratory Results: 02/16/20 10:39 02/16/20 10:39 02/16/20 02/16/20 02/16/20 10:39 10:39 11:40 WBC 9.2 RBC 4.61 Hgb 11.3 L Hct 35.0 L MCV 76 L MCH 24.6 L MCHC 32.4 RDW 18.6 H Plt Count 293 Sodium 132.6 L Potassium 4.9 Chloride 96 L Carbon Dioxide 27 Anion Gap 10 BUN 21 H Creatinine 0.77 Est GFR ( Amer) > 60 Glucose 97 Calcium 8.7 Total Bilirubin 0.4 AST 27 Alkaline Phosphatase 86 Total Protein 7.6 Albumin 4.6 Urine Color YELLOW Urine Appearance CLEAR Urine pH 6.0 Ur Specific [place] 1.013 Urine Protein NEGATIVE Urine Glucose (UA) NEGATIVE Urine Ketones NEGATIVE Urine Blood NEGATIVE Urine Nitrite NEGATIVE Ur Leukocyte Esterase NEGATIVE Urine WBC (Auto) 0 Impressions: Foot X-Ray 02/16/20 00:00 IMPRESSION: Hallux valgus. Foot ulcer. No evidence of osteomyelitis. Assessment & Plan - Diagnosis (1) Foot ulcer Qualifiers: Laterality: left Non-pressure ulcer stage: limited to breakdown of skin Qualified Code(s): L97.521 - Non-pressure chronic ulcer of other part of left foot limited to breakdown of skin Is this a current diagnosis for this admission?: Yes - Plan Summary Plan Summary: This is a 69-year-old male with a left foot ulcer. I believe the ulcer is related to his foot deformity. Currently, he has no leukocytosis, fevers, chills, drainage, erythema, induration, or obviously exposed bone. I have reviewed his foot x-ray, which fails to show any sign of osteomyelitis. I would recommend local wound care. He should follow-up with the wound care clinic. I do not recommend surgical intervention at this time. Surgery will sign off. Please renotify with any questions or concerns.
--- NOTE | 2020-02-16 20:41 | PDOC H&P ---
History of Present Illness Admission Date/PCP: 02/16/20 09:48 BEA GLASER MD History of Present Illness: BRE BERNARD is a 69 year old male,Patient was admitted for evaluation and management of ulcer at the plantar surface of the left big toe. He has risk factors for vasculopathy including tobacco use, hypertension, hyperlipidemia. The ulcer is suspected of ischemic origin, patient is admitted for the administration of IV antibiotic, arterial Doppler ordered and also to be evaluated by the surgeon. Past Medical History Cardiac Medical History: Reports: Coronary Artery Disease, Myocardial Infarction, Hyperlipidema, Hypertension GI Medical History: Reports: Gastroesophageal Reflux Disease Psychiatric Medical History: Reports: Depression Social History Smoking Status: Current Every Day Smoker Cigarettes Packs Per Day: 0.7 Electronic Cigarette use?: No Frequency of Alcohol Use: Heavy Hx Recreational Drug Use: Yes Drugs: Cocaine, Marijuana Hx Prescription Drug Abuse: Yes Family History Family History: Reviewed & Not Pertinent Parental Family History Reviewed: Yes Children Family History Reviewed: Yes Sibling(s) Family History Reviewed.: Yes Medication/Allergy Home Medications: Clonidine HCl [Catapres 0.1 mg Tablet] 0.1 mg PO BID 10/07/17 Gabapentin [Neurontin 300 mg Capsule] 300 mg PO Q8 10/07/17 Lisinopril/Hydrochlorothiazide [Zestoretic 20-12.5 mg Tablet] 1 tab PO Q12 10/07/17 Metoprolol Succinate [Toprol Xl 25 mg Tab.sr] 25 mg PO DAILY 10/07/17 Omeprazole 40 mg PO DAILY 10/07/17 Pramipexole Di-HCl [Mirapex 0.25 mg Tablet] 0.25 mg PO BID 10/07/17 Sertraline HCl [Zoloft] 100 mg PO BID 10/07/17 Zolpidem Tartrate [Ambien] 10 mg PO HSP PRN 10/07/17 Acetaminophen with Codeine [Acetaminophen-Cod #4 Tablet] 1 each PO Q6HP PRN 02/16/20 Clindamycin HCl 300 mg PO Q8 #15 02/21/20 Allergies/Adverse Reactions: No Known Allergies Allergy (Verified 01/18/16 13:02) Review of Systems Constitutional: ABSENT: chills, fever(s), headache(s), weight gain, weight loss Eyes: ABSENT: visual disturbances Ears: ABSENT: hearing changes Cardiovascular: ABSENT: chest pain, dyspnea on exertion, edema, orthropnea, palpitations Respiratory: ABSENT: cough, hemoptysis Gastrointestinal: ABSENT: abdominal pain, constipation, diarrhea, hematemesis, hematochezia, nausea, vomiting Genitourinary: ABSENT: dysuria, hematuria Musculoskeletal: PRESENT: other - ulcer of the left big toe Neurological: ABSENT: abnormal gait, abnormal speech, confusion, dizziness, focal weakness, syncope Psychiatric: ABSENT: anxiety, depression, homidical ideation, suicidal ideation Endocrine: ABSENT: cold intolerance, heat intolerance, menstrual abnormalities, polydipsia, polyuria Hematologic/Lymphatic: ABSENT: easy bleeding, easy bruising, lymphadenopathy Physical Exam Vital Signs: Temp Pulse Resp BP Pulse Ox 97.5 F 60 20 173/87 H 98 02/16/20 17:11 02/16/20 19:00 02/16/20 17:11 02/16/20 17:11 02/16/20 17:11 Intake & Output 02/15/20 02/16/20 02/17/20 06:59 06:59 06:59 Intake Total 520 Output Total 200 Balance 320 Weight 94.3 kg General appearance: PRESENT: no acute distress Head exam: PRESENT: atraumatic, normocephalic Eye exam: PRESENT: PERRLA Ear exam: PRESENT: normal external ear exam Mouth exam: PRESENT: moist, tongue midline Neck exam: PRESENT: full ROM Respiratory exam: PRESENT: clear to auscultation [place] Cardiovascular exam: PRESENT: RRR, +S1, +S2 Pulses: PRESENT: normal dorsalis pedis pul, +2 pedal pulses bilateral Vascular exam: PRESENT: normal capillary refill GI/Abdominal exam: PRESENT: normal bowel sounds, soft Rectal exam: PRESENT: deferred Neurological exam: PRESENT: alert, CN II-XII grossly intact Psychiatric exam: PRESENT: appropriate affect, normal mood Skin exam: PRESENT: other - ulcer at the base of the left big toe Results Laboratory Results: 02/16/20 10:39 02/16/20 10:39 02/16/20 02/16/20 02/16/20 10:39 10:39 11:40 WBC 9.2 RBC 4.61 Hgb 11.3 L Hct 35.0 L MCV 76 L MCH 24.6 L MCHC 32.4 RDW 18.6 H Plt Count 293 Sodium 132.6 L Potassium 4.9 Chloride 96 L Carbon Dioxide 27 Anion Gap 10 BUN 21 H Creatinine 0.77 Est GFR ( Amer) > 60 Glucose 97 Calcium 8.7 Total Bilirubin 0.4 AST 27 Alkaline Phosphatase 86 Total Protein 7.6 Albumin 4.6 Urine Color YELLOW Urine Appearance CLEAR Urine pH 6.0 Ur Specific [place] 1.013 Urine Protein NEGATIVE Urine Glucose (UA) NEGATIVE Urine Ketones NEGATIVE Urine Blood NEGATIVE Urine Nitrite NEGATIVE Ur Leukocyte Esterase NEGATIVE Urine WBC (Auto) 0 Impressions: Foot X-Ray 02/16/20 00:00 IMPRESSION: Hallux valgus. Foot ulcer. No evidence of osteomyelitis. Assessment & Plan - Diagnosis (1) Ischemic ulcer of toe of left foot Qualifiers: Non-pressure ulcer stage: unspecified non-pressure ulcer stage Qualified Code(s): L97.529 - Non-pressure chronic ulcer of other part of left foot with unspecified severity Is this a current diagnosis for this admission?: Yes Plan: Patient is admitted for management,Treat with antibiotic, consult surgery, he has underlying PAD (2) Peripheral vascular disease Is this a current diagnosis for this admission?: Yes (3) Chronic obstructive pulmonary disease Qualifiers: COPD type: unspecified COPD Qualified Code(s): J44.9 - Chronic obstructive pulmonary disease, unspecified Is this a current diagnosis for this admission?: Yes
[2020-02-16] MEDS: HYDROCHLOROTHIAZIDE 12.5 MG TABLET PO SCH (21:21)
[2020-02-16] MEDS: LISINOPRIL 10 MG TABLET PO SCH (21:21)
[2020-02-16] MEDS: ZOLPIDEM TARTRATE 5 MG TABLET PO PRN (21:22)
[2020-02-16] MEDS: SERTRALINE HCL 50 MG TABLET PO SCH (21:22)
[2020-02-17] MEDS: [UNRECOGNIZED DRUG - OTHER] PO SCH ×5 (00:09→22:05)
[2020-02-17] MEDS: CLINDAMYCIN 600 MG/D5W RTU 600 MG/50 ML RTUPB IV SCH ×3 (03:03→17:42)
[2020-02-17] MEDS: GABAPENTIN 300 MG CAPSULE PO SCH ×3 (05:12→22:05)
[2020-02-17] MEDS: HYDROCHLOROTHIAZIDE 12.5 MG TABLET PO SCH ×2 (09:37→22:05)
[2020-02-17] MEDS: CLONIDINE HCL 0.1 MG TABLET PO SCH ×2 (09:37→17:42)
[2020-02-17] MEDS: LISINOPRIL 10 MG TABLET PO SCH ×2 (09:38→22:05)
[2020-02-17] MEDS: METOPROLOL SUCCINATE 25 MG TAB.SR.24H PO SCH (09:38)
[2020-02-17] MEDS: SERTRALINE HCL 50 MG TABLET PO SCH ×2 (09:38→22:05)
[2020-02-17] MEDS: PANTOPRAZOLE SODIUM 40 MG TABLET.DR PO SCH (09:39)
[2020-02-17] MEDS: PRAMIPEXOLE DI-HCL 0.25 MG TABLET PO SCH ×2 (09:45→17:42)
[2020-02-17] MEDS: ACETAMINOPHEN WITH CODEINE #3 TABLET PO PRN ×2 (09:50→17:42)
--- NOTE | 2020-02-17 20:16 | PDOC PROGRESS REPORT ---
Subjective Progress Note for:: 02/17/20 Subjective:: Patient was admitted for ulcer of the left big toe, arterial Doppler is ordered, pending, the ulcer is infected, patient on antibiotic, improve infection Reason For Visit: ISCHEMIC LEFT TOE, ULCER Physical Exam Vital Signs: Temp Pulse Resp BP Pulse Ox 97.8 F 58 L 19 171/65 H 98 02/17/20 07:40 02/17/20 19:00 02/17/20 07:40 02/17/20 07:40 02/17/20 07:40 Intake & Output 02/16/20 02/17/20 02/18/20 06:59 06:59 06:59 Intake Total 830 1350 Output Total 200 Balance 630 1350 Weight 98.6 kg General appearance: PRESENT: no acute distress Eye exam: PRESENT: PERRLA Respiratory exam: PRESENT: clear to auscultation [place] Cardiovascular exam: PRESENT: +S1, +S2 GI/Abdominal exam: PRESENT: soft Neurological exam: PRESENT: alert Results Laboratory Results: 02/16/20 10:39 02/16/20 10:39 Impressions: Foot X-Ray 02/16/20 00:00 IMPRESSION: Hallux valgus. Foot ulcer. No evidence of osteomyelitis. Assessment & Plan - Diagnosis (1) Ischemic ulcer of toe of left foot Qualifiers: Non-pressure ulcer stage: unspecified non-pressure ulcer stage Qualified Code(s): L97.529 - Non-pressure chronic ulcer of other part of left foot with unspecified severity Is this a current diagnosis for this admission?: Yes Plan: Continue antibiotic - Time Time Spent with patient: 25-34 minutes Level of Care: IMCU
[2020-02-17] MEDS: ZOLPIDEM TARTRATE 5 MG TABLET PO PRN (22:28)
[2020-02-18] MEDS: ACETAMINOPHEN WITH CODEINE #3 TABLET PO PRN ×3 (00:06→16:54)
[2020-02-18] MEDS: CLINDAMYCIN 600 MG/D5W RTU 600 MG/50 ML RTUPB IV SCH ×3 (02:53→17:37)
[2020-02-18] MEDS: GABAPENTIN 300 MG CAPSULE PO SCH ×3 (05:32→22:02)
[2020-02-18] MEDS: SERTRALINE HCL 50 MG TABLET PO SCH ×2 (09:34→22:01)
[2020-02-18] MEDS: PRAMIPEXOLE DI-HCL 0.25 MG TABLET PO SCH ×2 (09:35→17:37)
[2020-02-18] MEDS: LISINOPRIL 10 MG TABLET PO SCH ×2 (09:35→22:01)
[2020-02-18] MEDS: METOPROLOL SUCCINATE 25 MG TAB.SR.24H PO SCH (09:35)
[2020-02-18] MEDS: HYDROCHLOROTHIAZIDE 12.5 MG TABLET PO SCH ×2 (09:35→22:01)
[2020-02-18] MEDS: PANTOPRAZOLE SODIUM 40 MG TABLET.DR PO SCH (09:35)
[2020-02-18] MEDS: CLONIDINE HCL 0.1 MG TABLET PO SCH ×2 (09:35→17:37)
[2020-02-18] MEDS: [UNRECOGNIZED DRUG - OTHER] PO SCH ×4 (09:40→22:02)
[2020-02-18] MEDS: OXYCODONE-ACETAMINOPHEN 5-325 MG TABLET PO PRN (20:35)
[2020-02-18] MEDS: ZOLPIDEM TARTRATE 5 MG TABLET PO PRN (22:02)
--- NOTE | 2020-02-18 22:05 | PDOC PROGRESS REPORT ---
Subjective Progress Note for:: 02/18/20 Subjective:: Patient infected ulcer is improving on IV antibiotic Reason For Visit: ISCHEMIC LEFT TOE, ULCER Physical Exam Vital Signs: Temp Pulse Resp BP Pulse Ox 97.8 F 57 L 16 183/75 H 95 02/18/20 19:28 02/18/20 19:28 02/18/20 19:28 02/18/20 19:28 02/18/20 19:28 Intake & Output 02/17/20 02/18/20 02/19/20 06:59 06:59 06:59 Intake Total 830 1910 2355 Output Total 200 250 Balance 630 1910 2105 Weight 98.6 kg 98.2 kg 98.2 kg General appearance: PRESENT: no acute distress Eye exam: PRESENT: PERRLA Respiratory exam: PRESENT: clear to auscultation [place] Cardiovascular exam: PRESENT: +S1, +S2 GI/Abdominal exam: PRESENT: soft Neurological exam: PRESENT: alert Results Laboratory Results: 02/16/20 10:39 02/16/20 10:39 Impressions: Foot X-Ray 02/16/20 00:00 IMPRESSION: Hallux valgus. Foot ulcer. No evidence of osteomyelitis. Assessment & Plan - Diagnosis (1) Ischemic ulcer of toe of left foot Qualifiers: Non-pressure ulcer stage: unspecified non-pressure ulcer stage Qualified Code(s): L97.529 - Non-pressure chronic ulcer of other part of left foot with unspecified severity Is this a current diagnosis for this admission?: Yes Plan: Continue IV antibiotic, he is asking for stronger pain medication (2) Chronic obstructive pulmonary disease Qualifiers: COPD type: unspecified COPD Qualified Code(s): J44.9 - Chronic obstructive pulmonary disease, unspecified Is this a current diagnosis for this admission?: Yes - Time Time Spent with patient: 25-34 minutes Level of Care: CU
[2020-02-19] MEDS: CLINDAMYCIN 600 MG/D5W RTU 600 MG/50 ML RTUPB IV SCH ×3 (01:08→17:12)
[2020-02-19] MEDS: OXYCODONE-ACETAMINOPHEN 5-325 MG TABLET PO PRN ×6 (01:08→23:46)
[2020-02-19] MEDS: GABAPENTIN 300 MG CAPSULE PO SCH ×3 (05:25→21:35)
[2020-02-19] MEDS: [UNRECOGNIZED DRUG - OTHER] PO SCH ×4 (09:29→21:35)
[2020-02-19] MEDS: HYDROCHLOROTHIAZIDE 12.5 MG TABLET PO SCH ×2 (09:45→21:34)
[2020-02-19] MEDS: PRAMIPEXOLE DI-HCL 0.25 MG TABLET PO SCH ×2 (09:45→17:12)
[2020-02-19] MEDS: SERTRALINE HCL 50 MG TABLET PO SCH ×2 (09:45→21:34)
[2020-02-19] MEDS: METOPROLOL SUCCINATE 25 MG TAB.SR.24H PO SCH (09:45)
[2020-02-19] MEDS: CLONIDINE HCL 0.1 MG TABLET PO SCH ×2 (09:46→17:12)
[2020-02-19] MEDS: PANTOPRAZOLE SODIUM 40 MG TABLET.DR PO SCH (09:46)
[2020-02-19] MEDS: LISINOPRIL 10 MG TABLET PO SCH ×2 (09:46→21:35)
--- NOTE | 2020-02-19 11:14 | PDOC PROGRESS REPORT ---
Subjective Progress Note for:: 02/19/20 Subjective:: Patient is currently doing fair Patient is still having some pain under her left foot Patient seen by the general surgery Continues the IV antibiotic Reason For Visit: ISCHEMIC LEFT TOE, ULCER Physical Exam Vital Signs: Temp Pulse Resp BP Pulse Ox 97.8 F 57 L 20 155/52 H 95 02/19/20 08:16 02/19/20 08:16 02/19/20 08:16 02/19/20 08:16 02/19/20 08:16 Intake & Output 02/18/20 02/19/20 02/20/20 06:59 06:59 06:59 Intake Total 191 2765 Output Total 250 Balance 1909 2515 Weight 98.2 kg 95.6 kg General appearance: PRESENT: no acute distress, well-developed, well-nourished Head exam: PRESENT: atraumatic, normocephalic Eye exam: PRESENT: conjunctiva pink, EOMI, PERRLA. ABSENT: scleral icterus Ear exam: PRESENT: normal external ear exam Mouth exam: PRESENT: moist, tongue midline Neck exam: PRESENT: full ROM. ABSENT: carotid bruit, JVD, lymphadenopathy, thyromegaly Respiratory exam: PRESENT: clear to auscultation [place] Cardiovascular exam: PRESENT: RRR. ABSENT: diastolic murmur, rubs, systolic murmur Vascular exam: PRESENT: normal capillary refill GI/Abdominal exam: PRESENT: normal bowel sounds, soft. ABSENT: distended, guarding, mass, organolmegaly, rebound, tenderness Rectal exam: PRESENT: deferred Extremities exam: PRESENT: pedal edema Additional comments: Left lower extremities and the left foot mild callus with some mild redness is present Neurological exam: PRESENT: alert, awake, oriented to person, oriented to place, oriented to time, oriented to situation, CN II-XII grossly intact. ABSENT: motor sensory deficit Psychiatric exam: PRESENT: appropriate affect, normal mood. ABSENT: homicidal ideation, suicidal ideation Skin exam: PRESENT: dry, intact, warm. ABSENT: cyanosis, rash Results Laboratory Results: 02/16/20 10:39 02/16/20 10:39 Impressions: Foot X-Ray 02/16/20 00:00 IMPRESSION: Hallux valgus. Foot ulcer. No evidence of osteomyelitis. Assessment & Plan - Diagnosis (1) Foot ulcer Qualifiers: Laterality: left Non-pressure ulcer stage: limited to breakdown of skin Qualified Code(s): L97.521 - Non-pressure chronic ulcer of other part of left foot limited to breakdown of skin Is this a current diagnosis for this admission?: Yes (2) Ischemic ulcer of toe of left foot Qualifiers: Non-pressure ulcer stage: unspecified non-pressure ulcer stage Qualified Code(s): L97.529 - Non-pressure chronic ulcer of other part of left foot with unspecified severity Is this a current diagnosis for this admission?: Yes (3) Chronic obstructive pulmonary disease Qualifiers: COPD type: unspecified COPD Qualified Code(s): J44.9 - Chronic obstructive pulmonary disease, unspecified Is this a current diagnosis for this admission?: Yes - Time Time Spent with patient: 15-24 minutes Level of Care: IMCU Medications reviewed and adjusted accordingly: Yes Anticipated discharge: Other Within: Other - Plan Summary Plan Summary: Continues to current medications
[2020-02-19] MEDS: ZOLPIDEM TARTRATE 5 MG TABLET PO PRN (21:35)
[2020-02-20] MEDS: CLINDAMYCIN 600 MG/D5W RTU 600 MG/50 ML RTUPB IV SCH ×3 (01:30→17:23)
[2020-02-20] MEDS: OXYCODONE-ACETAMINOPHEN 5-325 MG TABLET PO PRN ×5 (04:02→22:46)
[2020-02-20] MEDS: GABAPENTIN 300 MG CAPSULE PO SCH ×3 (05:01→21:28)
[2020-02-20] MEDS: PANTOPRAZOLE SODIUM 40 MG TABLET.DR PO SCH (08:02)
[2020-02-20] MEDS: [UNRECOGNIZED DRUG - OTHER] PO SCH ×4 (08:04→22:19)
[2020-02-20] MEDS: CLONIDINE HCL 0.1 MG TABLET PO SCH ×2 (09:34→17:23)
[2020-02-20] MEDS: METOPROLOL SUCCINATE 25 MG TAB.SR.24H PO SCH (09:34)
[2020-02-20] MEDS: LISINOPRIL 10 MG TABLET PO SCH ×2 (09:35→21:28)
[2020-02-20] MEDS: SERTRALINE HCL 50 MG TABLET PO SCH ×2 (09:35→21:28)
[2020-02-20] MEDS: PRAMIPEXOLE DI-HCL 0.25 MG TABLET PO SCH ×2 (09:35→17:23)
[2020-02-20] MEDS: HYDROCHLOROTHIAZIDE 12.5 MG TABLET PO SCH ×2 (09:35→21:28)
--- NOTE | 2020-02-20 10:33 | PDOC PROGRESS REPORT ---
Subjective Progress Note for:: 02/20/20 Subjective:: Patient is currently doing fair Patient is still having some pain under her left foot Patient seen by the general surgery Continues the IV antibiotic Reason For Visit: ISCHEMIC LEFT TOE, ULCER Physical Exam Vital Signs: Temp Pulse Resp BP Pulse Ox 97.7 F 58 L 21 H 160/59 H 96 02/20/20 07:40 02/20/20 07:40 02/20/20 07:40 02/20/20 07:40 02/20/20 07:40 Intake & Output 02/19/20 02/20/20 02/21/20 06:59 06:59 06:59 Intake Total 2765 1720 Output Total 250 Balance 2515 1720 Weight 95.6 kg 95.5 kg General appearance: PRESENT: no acute distress, well-developed, well-nourished Head exam: PRESENT: atraumatic, normocephalic Eye exam: PRESENT: conjunctiva pink, EOMI, PERRLA. ABSENT: scleral icterus Ear exam: PRESENT: normal external ear exam Mouth exam: PRESENT: moist, tongue midline Neck exam: PRESENT: full ROM. ABSENT: carotid bruit, JVD, lymphadenopathy, thyromegaly Respiratory exam: PRESENT: clear to auscultation [place] Cardiovascular exam: PRESENT: RRR. ABSENT: diastolic murmur, rubs, systolic murmur Vascular exam: PRESENT: normal capillary refill GI/Abdominal exam: PRESENT: normal bowel sounds, soft. ABSENT: distended, guarding, mass, organolmegaly, rebound, tenderness Rectal exam: PRESENT: deferred Neurological exam: PRESENT: alert, awake, oriented to person, oriented to place, oriented to time, oriented to situation, CN II-XII grossly intact. ABSENT: motor sensory deficit Psychiatric exam: PRESENT: appropriate affect, normal mood. ABSENT: homicidal ideation, suicidal ideation Skin exam: PRESENT: dry, intact, warm. ABSENT: cyanosis, rash Results Laboratory Results: 02/16/20 10:39 02/16/20 10:39 Impressions: Foot X-Ray 02/16/20 00:00 IMPRESSION: Hallux valgus. Foot ulcer. No evidence of osteomyelitis. Assessment & Plan - Diagnosis (1) Foot ulcer Qualifiers: Laterality: left Non-pressure ulcer stage: limited to breakdown of skin Qualified Code(s): L97.521 - Non-pressure chronic ulcer of other part of left foot limited to breakdown of skin Is this a current diagnosis for this admission?: Yes (2) Ischemic ulcer of toe of left foot Qualifiers: Non-pressure ulcer stage: unspecified non-pressure ulcer stage Qualified Code(s): L97.529 - Non-pressure chronic ulcer of other part of left foot with unspecified severity Is this a current diagnosis for this admission?: Yes (3) Chronic obstructive pulmonary disease Qualifiers: COPD type: unspecified COPD Qualified Code(s): J44.9 - Chronic obstructive pulmonary disease, unspecified Is this a current diagnosis for this admission?: Yes - Time Time Spent with patient: 15-24 minutes Level of Care: IMCU Medications reviewed and adjusted accordingly: Yes Anticipated discharge: Other Within: Other - Plan Summary Plan Summary: Continues to current medications
[2020-02-20] MEDS: ZOLPIDEM TARTRATE 5 MG TABLET PO PRN (21:28)
[2020-02-21] MEDS: CLINDAMYCIN 600 MG/D5W RTU 600 MG/50 ML RTUPB IV SCH ×3 (02:54→17:57)
[2020-02-21] MEDS: OXYCODONE-ACETAMINOPHEN 5-325 MG TABLET PO PRN ×4 (02:55→16:03)
[2020-02-21] MEDS: GABAPENTIN 300 MG CAPSULE PO SCH ×2 (06:50→13:16)
[2020-02-21 06:53] LABS: ABSOLUTE BASOPHILS # (AUTO) 0.1 10^3/uL (0.0-0.2); ABSOLUTE EOSINOPHILS # (AUTO) 0.2 10^3/uL (0.0-0.6); ABSOLUTE LYMPHOCYTES (AUTO) 1.6 10^3/uL (0.5-4.7); ABSOLUTE MONOCYTES (AUTO) 0.9 10^3/uL (0.1-1.4); ABSOLUTE NEUT (AUTO) 5.3 10^3/uL (1.7-8.2); BASOPHILS % (AUTO) 0.7 % (0-2); EOSINOPHILS % (AUTO) 3.1 % (0-6); HEMATOCRIT 34.4 % (37.9-51.0); HEMOGLOBIN 11.2 g/dL (13.5-17.0); LYMPHOCYTES % (AUTO) 19.8 % (13-45); MEAN CORPUSCULAR HEMOGLOBIN 24.4 pg (27.0-33.4); MEAN CORPUSCULAR HGB CONC 32.6 g/dL (32.0-36.0); MEAN CORPUSCULAR VOLUME 75 fl (80-97); MONOCYTES % (AUTO) 10.7 % (3-13); PLATELET COUNT 260 10^3/uL (150-450); RED BLOOD COUNT 4.58 10^6/uL (4.35-5.55); RED CELL DISTRIBUTION WIDTH 18.1 % (11.5-14.0); SEGMENTED NEUTROPHILS % (AUTO) 65.7 % (42-78); TOTAL CELLS COUNTED % (AUTO) 100 %
[2020-02-21 07:24] LABS: ANION GAP 8 (5-19); BLOOD UREA NITROGEN 20 mg/dL (7-20); CALCIUM 9.6 mg/dL (8.4-10.2); CARBON DIOXIDE 27 mmol/L (22-30); CHLORIDE 98 mmol/L (98-107); GLUCOSE 104 mg/dL (75-110); POTASSIUM 4.6 mmol/L (3.6-5.0)
[2020-02-21] MEDS: PANTOPRAZOLE SODIUM 40 MG TABLET.DR PO SCH (08:00)
[2020-02-21] MEDS: [UNRECOGNIZED DRUG - OTHER] PO SCH ×3 (08:01→16:03)
[2020-02-21] MEDS: HYDROCHLOROTHIAZIDE 12.5 MG TABLET PO SCH (09:03)
[2020-02-21] MEDS: CLONIDINE HCL 0.1 MG TABLET PO SCH ×2 (09:03→17:57)
[2020-02-21] MEDS: SERTRALINE HCL 50 MG TABLET PO SCH (09:04)
[2020-02-21] MEDS: PRAMIPEXOLE DI-HCL 0.25 MG TABLET PO SCH ×2 (09:04→17:57)
[2020-02-21] MEDS: METOPROLOL SUCCINATE 25 MG TAB.SR.24H PO SCH (09:04)
[2020-02-21] MEDS: LISINOPRIL 10 MG TABLET PO SCH (09:04)
[2020-02-21 18:21] VITALS: BP 159/77
--- NOTE | 2020-02-21 22:17 | PDOC DISCHARGE SUMMARY ---
Impression - Admit/DC Date/PCP Admission Date/Primary Care Provider: 02/19/20 08:44 BEA GLASER MD Discharge Date: 02/21/20 - Discharge Diagnosis (1) Ischemic ulcer of toe of left foot Is this a current diagnosis for this admission?: Yes (2) Peripheral vascular disease Is this a current diagnosis for this admission?: Yes (3) Chronic obstructive pulmonary disease Is this a current diagnosis for this admission?: Yes - Additional Information Discharge Diet: Cardiac, Other (Comments) Discharge Activity: Activity As Tolerated Referrals: BEA GLASER MD [Primary Care Provider] - Prescriptions: RX: Clindamycin HCl 300 mg PO Q8 #15 Home Medications: RX: Clonidine HCl [Catapres 0.1 mg Tablet] 0.1 mg PO BID 10/07/17 RX: Gabapentin [Neurontin 300 mg Capsule] 300 mg PO Q8 10/07/17 RX: Lisinopril/Hydrochlorothiazide [Zestoretic 20-12.5 mg Tablet] 1 tab PO Q12 10/07/17 RX: Metoprolol Succinate [Toprol Xl 25 mg Tab.sr] 25 mg PO DAILY 10/07/17 RX: Omeprazole 40 mg PO DAILY 10/07/17 RX: Pramipexole Di-HCl [Mirapex 0.25 mg Tablet] 0.25 mg PO BID 10/07/17 RX: Sertraline HCl [Zoloft] 100 mg PO BID 10/07/17 RX: Zolpidem Tartrate [Ambien] 10 mg PO HSP PRN 10/07/17 RX: Acetaminophen with Codeine [Acetaminophen-Cod #4 Tablet] 1 each PO Q6HP PRN 02/16/20 RX: Clindamycin HCl 300 mg PO Q8 #15 02/21/20 History of Present Illiness History of Present Illness: BRE BERNARD is a 69 year old male,Patient was admitted for evaluation and management of ulcer at the plantar surface of the left big toe. He has risk factors for vasculopathy including tobacco use, hypertension, hyperlipidemia. The ulcer is suspected of ischemic origin, patient is admitted for the administration of IV antibiotic, arterial Doppler ordered and also to be evaluated by the surgeon. Hospital Course Hospital Course: Patient was admitted for the management of infected left big toe, this was felt to be ischemic in nature, empirically treated with IV antibiotic, clindamycin. Consultation requested from surgery, surgery see no indication for surgery. Arterial Doppler was done, it demonstrated moderate severity of PAD, official report not available yet as of time of dictation. Physical Exam Vital Signs: Temp Pulse Resp BP Pulse Ox 98.1 F 63 17 159/77 H 95 02/21/20 18:20 02/21/20 18:20 02/21/20 18:20 02/21/20 18:20 02/21/20 18:20 Intake & Output 02/20/20 02/21/20 02/22/20 06:59 06:59 06:59 Intake Total 1720 1820 50 Balance 1720 1820 50 Weight 95.5 kg 94.9 kg General appearance: PRESENT: no acute distress Eye exam: PRESENT: PERRLA Respiratory exam: PRESENT: clear to auscultation j[place] Cardiovascular exam: PRESENT: +S1, +S2 GI/Abdominal exam: PRESENT: soft Neurological exam: PRESENT: alert, CN II-XII grossly intact Results Laboratory Results: WBC 8.0 10^3/uL (4.0-10.5) 02/21/20 06:08 RBC 4.58 10^6/uL (4.35-5.55) 02/21/20 06:08 Hgb 11.2 g/dL (13.5-17.0) L 02/21/20 06:08 Hct 34.4 % (37.9-51.0) L 02/21/20 06:08 MCV 75 fl (80-97) L 02/21/20 06:08 MCH 24.4 pg (27.0-33.4) L 02/21/20 06:08 MCHC 32.6 g/dL (32.0-36.0) 02/21/20 06:08 RDW 18.1 % (11.5-14.0) H 02/21/20 06:08 Plt Count 260 10^3/uL (150-450) 02/21/20 06:08 Lymph % (Auto) 19.8 % (13-45) 02/21/20 06:08 Ashley % (Auto) 10.7 % (3-13) 02/21/20 06:08 Eos % (Auto) 3.1 % (0-6) 02/21/20 06:08 Baso % (Auto) 0.7 % (0-2) 02/21/20 06:08 Absolute Neuts (auto) 5.3 10^3/uL (1.7-8.2) 02/21/20 06:08 Absolute Lymphs (auto) 1.6 10^3/uL (0.5-4.7) 02/21/20 06:08 Absolute Monos (auto) 0.9 10^3/uL (0.1-1.4) 02/21/20 06:08 Absolute Eos (auto) 0.2 10^3/uL (0.0-0.6) 02/21/20 06:08 Absolute Basos (auto) 0.1 10^3/uL (0.0-0.2) 02/21/20 06:08 Seg Neutrophils % 65.7 % (42-78) 02/21/20 06:08 Sodium 133.0 mmol/L (137-145) L 02/21/20 06:08 Potassium 4.6 mmol/L (3.6-5.0) 02/21/20 06:08 Chloride 98 mmol/L (98-107) 02/21/20 06:08 Carbon Dioxide 27 mmol/L (22-30) 02/21/20 06:08 Anion Gap 8 (5-19) 02/21/20 06:08 BUN 20 mg/dL (7-20) 02/21/20 06:08 Creatinine 0.74 mg/dL (0.52-1.25) 02/21/20 06:08 Est GFR ( Amer) > 60 (>60) 02/21/20 06:08 Est GFR (MDRD) Non-Af > 60 (>60) 02/21/20 06:08 Glucose 104 mg/dL (75-110) 02/21/20 06:08 Calcium 9.6 mg/dL (8.4-10.2) 02/21/20 06:08 Total Bilirubin 0.4 mg/dL (0.2-1.3) 02/16/20 10:39 Direct Bilirubin 0.4 mg/dL (0.0-0.4) 02/16/20 10:39 Neonat Total Bilirubin Not Reportable 02/16/20 10:39 Neonat Direct Bilirubin Not Reportable 02/16/20 10:39 Neonat Indirect Bili Not Reportable 02/16/20 10:39 AST 27 U/L (17-59) 02/16/20 10:39 ALT 21 U/L (<50) 02/16/20 10:39 Alkaline Phosphatase 86 U/L (38-126) 02/16/20 10:39 Total Protein 7.6 g/dL (6.3-8.2) 02/16/20 10:39 Albumin 4.6 g/dL (3.5-5.0) 02/16/20 10:39 Urine Color YELLOW 02/16/20 11:40 Urine Appearance CLEAR 02/16/20 11:40 Urine pH 6.0 (5.0-9.0) 02/16/20 11:40 Ur Specific Zirconia 1.013 02/16/20 11:40 Urine Protein NEGATIVE mg/dL (NEGATIVE) 02/16/20 11:40 Urine Glucose (UA) NEGATIVE mg/dL (NEGATIVE) 02/16/20 11:40 Urine Ketones NEGATIVE mg/dL (NEGATIVE) 02/16/20 11:40 Urine Blood NEGATIVE (NEGATIVE) 02/16/20 11:40 Urine Nitrite NEGATIVE (NEGATIVE) 02/16/20 11:40 Urine Bilirubin NEGATIVE (NEGATIVE) 02/16/20 11:40 Urine Urobilinogen NEGATIVE mg/dL (<2.0) 02/16/20 11:40 Ur Leukocyte Esterase NEGATIVE (NEGATIVE) 02/16/20 11:40 Urine WBC (Auto) 0 /HPF 02/16/20 11:40 U Hyaline Cast (Auto) 1 /LPF 02/16/20 11:40 Urine Bacteria (Auto) TRACE /HPF 02/16/20 11:40 Squamous Epi Cells Auto <1 /HPF 02/16/20 11:40 Urine Mucus (Auto) RARE /LPF 02/16/20 11:40 Urine Ascorbic Acid NEGATIVE (NEGATIVE) 02/16/20 11:40 Impressions: Foot X-Ray 02/16/20 00:00 IMPRESSION: Hallux valgus. Foot ulcer. No evidence of osteomyelitis. Stroke Is this a Stroke Patient?: No Acute Heart Failure - Is this a Heart Failure Patient?: No
--- NOTE | 2020-02-22 09:41 | RADIOLOGY REPORT (SQ) ---
EXAM DESCRIPTION: ARTERIAL LOWER EXTREM BILAT IMAGES COMPLETED DATE/TIME: 02/16/2020 4:38 pm REASON FOR STUDY: BLE PAIN COMPARISON: Doppler from 03/25/2017. TECHNIQUE: Dynamic and static spear scale and color images acquired of the lower extremity arteries. Additional selected spectral images recorded. LIMITATIONS: Evaluation is limited due to bilateral lower extremity skin thickening and swelling. FINDINGS: RIGHT LEG: There are multiphasic spectral waveforms in the common femoral artery, proximal profunda femoris, sup erficial femoral artery and popliteal without evidence of a focal stenosis. The PSVs in the vessels are as follow: METAL ORGAN PIPE MAKER: 160 cm/s. Profunda Femoris: 70 cm/s. Femoral: 140-190 cm/s. Popliteal: 90-130 cm/s. Unable to visualize the peroneal artery. The mid to distal posterior tibial and anterior tibial evelyn batsheva and the dorsalis pedis are patent. The PSVs in the vessels are as follow: BULK PLANT AGENT: 90-130 cm/s. LYNN: 50-60 cm/s. DP: 50 cm/s. LEFT LEG: There are multiphasic spectral waveforms in the common femoral artery, proximal profunda femoris, sup erficial femoral artery and popliteal without evidence of a focal stenosis. The PSVs in the vessels a re as follow: METAL ORGAN PIPE MAKER: 210 cm/s. Profunda Femoris: 140 cm/s. Femoral: 140-230 cm/s. Popliteal: 130 cm/s. Unable to visualize the peroneal artery. The mid to distal posterior tibial artery and the dorsalis pedis are patent. The proximal to mid anterior tibial artery is occluded and there is retrograde gregor w within the reconstituted distal segment of the vessel with a PSV of 60 cm/s. The other PSVs are as follow: BULK PLANT AGENT: 110-130 cm/s. DP: 50 cm/s. IMPRESSION: LIMITED DOPPLER EVALUATION DUE TO BILATERAL LOWER EXTREMITY SKIN HARDENING AND SWELLING. 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 THE DISTAL SEGMEN T OF THE VESSEL IS RECONSTITUTED VIA COLLATERALS AND IT DEMONSTRATES RETROGRADE FLOW. THE PSVs IN TH E FEMORAL AND POPLITEAL ARTERIES ARE ELEVATED BUT THERE IS NO FOCAL SEVERE STENOSIS. TECHNICAL DOCUMENTATION: JOB ID: [id number] 2010 [employer]- All Rights Reserved Reading location - IP/workstation name: [email or web address]-
== END 2020-02-21 19:00 | disposition home or self-care (01) | DRG 594 ==
LOC: INTOOBSV 09:48 → 3S 09:48 → OBSVTOIN 02-19 08:44
PROVIDERS: ADMIT Internal Medicine; ATTEND Internal Medicine
DX: L97.521 Non-pressure chronic ulcer of other part of left foot limited to breakdown of skin (principal); I70.245 Atherosclerosis of native arteries of left leg with ulceration of other part of foot; J44.9 Chronic obstructive pulmonary disease, unspecified; E78.5 Hyperlipidemia, unspecified; I10 Essential (primary) hypertension; L97.529 Non-pressure chronic ulcer of other part of left foot with unspecified severity; I25.10 Atherosclerotic heart disease of native coronary artery without angina pectoris; K21.9 Gastro-esophageal reflux disease without esophagitis; F32.9 Major depressive disorder, single episode, unspecified; F17.210 Nicotine dependence, cigarettes, uncomplicated; F10.10 Alcohol abuse, uncomplicated; I25.2 Old myocardial infarction; Z79.899 Other long term (current) drug therapy
CPT/HCPCS: 36415; 80048; 80076; 81001; 85025; 85027; 87040; 93925; G0378; J3490

== ENCOUNTER → 2020-06-21 | Outpatient (CLI) | payer MEDICARE, MEDICAID ==
[2020-06-21 11:24] LABS: ABSOLUTE EOSINOPHILS # (AUTO) 0.3 10^3/uL (0.0-0.6); ABSOLUTE LYMPHOCYTES (AUTO) 1.7 10^3/uL (0.5-4.7); ABSOLUTE MONOCYTES (AUTO) 0.6 10^3/uL (0.1-1.4); ABSOLUTE NEUT (AUTO) 6.1 10^3/uL (1.7-8.2); BASOPHILS % (AUTO) 0.5 % (0-2); EOSINOPHILS % (AUTO) 3.2 % (0-6); HEMATOCRIT 31.3 % (37.9-51.0); HEMOGLOBIN 10.2 g/dL (13.5-17.0); LYMPHOCYTES % (AUTO) 19.8 % (13-45); MEAN CORPUSCULAR HEMOGLOBIN 24.4 pg (27.0-33.4); MEAN CORPUSCULAR HGB CONC 32.6 g/dL (32.0-36.0); MEAN CORPUSCULAR VOLUME 75 fl (80-97); MONOCYTES % (AUTO) 6.6 % (3-13); PLATELET COUNT 221 10^3/uL (150-450); RED BLOOD COUNT 4.19 10^6/uL (4.35-5.55); RED CELL DISTRIBUTION WIDTH 19.7 % (11.5-14.0); SEGMENTED NEUTROPHILS % (AUTO) 69.9 % (42-78); TOTAL CELLS COUNTED % (AUTO) 100 %; WHITE BLOOD COUNT 8.7 10^3/uL (4.0-10.5)
[2020-06-21 11:57] LABS: ALBUMIN 4.1 g/dL (3.5-5.0); ALKALINE PHOSPHATASE 95 U/L (38-126); ANION GAP 10 (5-19); ASPARTATE AMINO TRANSFERASE 32 U/L (17-59); BILIRUBIN,DIRECT 0.4 mg/dL (0.0-0.4); BILIRUBIN,TOTAL 0.4 mg/dL (0.2-1.3); BLOOD UREA NITROGEN 20 mg/dL (7-20); C-REACTIVE PROTEIN 17.2 mg/L (<10.0); CALCIUM 9.1 mg/dL (8.4-10.2); CARBON DIOXIDE 26 mmol/L (22-30); CHLORIDE 104 mmol/L (98-107); GLUCOSE 127 mg/dL (75-110); POTASSIUM 4.5 mmol/L (3.6-5.0); TOTAL PROTEIN 7.7 g/dL (6.3-8.2)
[2020-06-21 12:05] LABS: ERYTHROCYTE SEDIMENTATION RATE 44 mm/hr (0-20)
--- NOTE | 2020-06-21 12:30 | RADIOLOGY REPORT (SQ) ---
EXAM DESCRIPTION: FOOT LEFT COMPLETE IMAGES COMPLETED DATE/TIME: 06/21/2020 11:23 am REASON FOR STUDY: NON-PRS CHRONIC ULCER OTH PRT LEFT FOOT W FAT LAYER EXPOSED L97.522 NON-PRS CHRON IC ULCER OTH PRT LEFT FOOT W FAT LAYER COMPARISON: None. NUMBER OF VIEWS: Three views. TECHNIQUE: AP, lateral and oblique radiographic images acquired of the left foot. LIMITATIONS: None. FINDINGS: MINERALIZATION: Normal. BONES: Prominent bunion. No osteomyelitis. JOINTS: Hallux valgus. SOFT TISSUES: No soft tissue swelling. No foreign body. OTHER: No other significant finding. IMPRESSION: There is no evidence of osteomyelitis. Findings as described. TECHNICAL DOCUMENTATION: JOB ID: [id number] [employer]- All Rights Reserved Reading location - IP/workstation name: [email or web address]
== END ==
LOC: WC 10:15
PROVIDERS: ATTEND Preventive Medicine Undersea and Hyperbaric Medicine
DX: L97.522 Non-pressure chronic ulcer of other part of left foot with fat layer exposed (principal)
CPT/HCPCS: 36415; 80053; 85025; 85652; 86140

== ENCOUNTER → 2020-06-21 | Outpatient (CLI) | payer MEDICARE, MEDICAID ==
--- NOTE | 2020-06-21 12:35 | RADIOLOGY REPORT (SQ) ---
EXAM DESCRIPTION: RIBS BILATERAL W/O PA CHEST IMAGES COMPLETED DATE/TIME: 06/21/2020 11:23 am REASON FOR STUDY: FALL (ON) (FROM) OTHER STAIRS AND STEPS, SEQUELA W10.8XXS FALL (ON) (FROM) OTHER STAIRS AND STEPS, SEQUELA COMPARISON: None. NUMBER OF VIEWS: 9 views TECHNIQUE: Images acquired of the right and left ribs in the area of focal concern. LIMITATIONS: None. FINDINGS: RIBS: No acute displaced fracture. No worrisome bone lesions. LUNGS: Calcified pleural plaques, right more than left. Small pleural effusions, left more than righ t. OTHER: No other significant finding. IMPRESSION: No acute displaced rib fracture. Calcified pleural plaques. Small pleural effusions ve rsus chronic pleural thickening. COMMENT: SITE OF TRAUMA/COMPLAINT MARKED/STAMP COMPLETED: NO. TECHNICAL DOCUMENTATION: JOB ID: [id number] 2010 [employer]- All Rights Reserved Reading location - IP/workstation name: [email or web address]
--- NOTE | 2020-06-21 12:38 | RADIOLOGY REPORT (SQ) ---
EXAM DESCRIPTION: C SP 4 OR 5 VIEWS IMAGES COMPLETED DATE/TIME: 06/21/2020 11:23 am REASON FOR STUDY: FALL (ON) (FROM) OTHER STAIRS AND STEPS, SEQUELA W10.8XXS FALL (ON) (FROM) OTHER STAIRS AND STEPS, SEQUELA COMPARISON: None. NUMBER OF VIEWS: Five views. TECHNIQUE: AP, lateral, obliques and odontoid radiographic images acquired of the cervical spine. LIMITATIONS: None. FINDINGS: MINERALIZATION: Normal. ALIGNMENT: Anatomic. VERTEBRAE: There is fusion of C5 and C6. DISCS: There is narrowing of the C6-7 disc space with marginal osteophytes. FORAMINA: There is mild narrowing of the right neural foramen at C3-4 and at C4-5. LATERAL AND POSTERIOR ELEMENTS: Hypertrophic facet changes are seen. HARDWARE: None in the spine. SOFT TISSUES: No masses or calcifications. Lung apices clear. OTHER: No other significant finding. IMPRESSION: Fusion of C5 and C6. Degenerative disc disease, spondylosis, and facet arthropathy. TECHNICAL DOCUMENTATION: JOB ID: [id number] 2010 [employer]- All Rights Reserved Reading location - IP/workstation name: [email or web address]
== END ==
LOC: OD 10:12
PROVIDERS: ATTEND Internal Medicine
DX: R07.82 Intercostal pain (principal); W10.8XXS Fall (on) (from) other stairs and steps, sequela; M50.323 Other cervical disc degeneration at C6-C7 level; M47.812 Spondylosis without myelopathy or radiculopathy, cervical region
CPT/HCPCS: 71110; 72050

== ENCOUNTER 2020-07-08 20:17 | Emergency (ER) | payer MEDICARE, MEDICAID ==
[2020-07-08] MEDS ORDERED: MORPHINE SULFATE 10 MG/ML INJ IV ONE (20:34)
--- NOTE | 2020-07-08 20:37 | ER Document Report ---
ED General - General Stated Complaint: CHEST PAIN WITH SHORTNESS OF BREATH FRO FALL Time Seen by Provider: 07/08/20 20:33 Primary Care Provider: RUEL HAGAN DPM [ACTIVE STAFF] - Follow up as needed TRAVEL OUTSIDE OF THE [place] IN LAST 30 DAYS: No - HPI Notes: 69-year-old male presents following a fall. Patient states that around 2 AM this morning he had gone to the bathroom and tripped, fell to the ground. He states that he woke up in the bathroom and was in a pool of blood, states that he was able to clean up all of the blood. He had an injury to his face and had bruising to his chest wall which is causing pain. He states that around 7 AM he called EMS due to increasing pain in his chest and some shortness of breath, apparently EMS denied him transport. Chest pain and shortness of breath progressively increasing about the day. Patient states that his pain is located where the bruising is and taking deep breath increases the pain. He does not take any blood thinners or antiplatelet medication. Denies pain to his extremities. Also complains of neck pain. - Related Data Allergies/Adverse Reactions: No Known Allergies Allergy (Verified 01/18/16 13:02) Past Medical History - General Information source: Patient - Social History Smoking Status: Current Every Day Smoker Family History: Reviewed & Not Pertinent - Past Medical History Cardiac Medical History: Reports: Hx Coronary Artery Disease, Hx Heart Attack, Hx Hypercholesterolemia, Hx Hypertension Neurological Medical History: Denies: Hx Seizures GI Medical History: Reports: Hx Gastroesophageal Reflux Disease Psychiatric Medical History: Reports: Hx Depression - Immunizations Hx Diphtheria, Pertussis, Tetanus Vaccination: No Review of Systems - Review of Systems Constitutional: No symptoms reported EENT: No symptoms reported Cardiovascular: Chest pain Respiratory: Hurts to breathe, Short of breath Gastrointestinal: denies: Abdominal pain Genitourinary: No symptoms reported Male Genitourinary: No symptoms reported Musculoskeletal: denies: Back pain, Joint pain Skin: Other - Chronic skin lesion to right leg that is being followed by dermatology Hematologic/Lymphatic: Easy bruising Neurological/Psychological: denies: Weakness, Numbness Physical Exam - Vital signs Vitals: Pulse Ox 93 07/08/20 20:31 - General General appearance: Appears well, Alert - HEENT Head: Normocephalic, Ecchymosis - Right cheek with a V shaped skin tear Extraocular movements intact: Yes Pupils: PERRL Neck: Other - C-collar in place, not removed as CT is pending - Respiratory Chest status: Tender, Ecchymosis Breath sounds: Rhonchi - Cardiovascular Rhythm: Regular Heart sounds: Normal auscultation Pulses: Normal: Femoral Normal capillary refill: Yes - Abdominal Inspection: Obese Tenderness: Nontender Notes: Ecchymosis to right upper quadrant. Pelvis stable - Extremities General upper extremity: Nontender, Normal ROM General lower extremity: Nontender, Normal ROM - Neurological Neuro grossly intact: Yes Cognition: Normal Orientation: AAOx4 [place] Coma Scale Eye Opening: Spontaneous [place] Coma Scale Verbal: Oriented Bee Coma Scale Motor: Obeys Commands [place] Coma Scale Total: 15 Motor strength normal: LUE, RUE, LLE, RLE Sensory: Normal - Psychological Associated symptoms: Normal affect - Skin Skin Temperature: Warm Notes: Red scaly discoloration to distal right leg, chronic appearing Course - Re-evaluation Re-evalutation: 69-year-old male fell this morning around 2 AM, had loss of consciousness as he awoke on the floor. Developed bruising to his chest wall with associated pain and shortness of breath. ABCs intact, GCS 15, he has right cheek ecchymosis with a V-shaped skin tear, he has ecchymosis to his anterior chest wall with associated tenderness, area of ecchymosis to right abdomen. And concern for thorax and abdominal injury given his bruising pattern, CT chest/abdomen/pelvis ordered. Additionally has signs of head trauma, CT head to assess for bleed, CT C-spine to assess for fracture. Check labs. Pain control. 07/08/20 22:[address], face and C-spine all negative for acute injury. Remove c-collar, patient has full range of motion, no midline tenderness, had some tenderness to the right lateral musculature. He reports chronic pain to the right side of his neck for which he takes medication for 07/08/20 23:14 CT chest/abdomen/pelvis report available, images reviewed. There is chest wall soft tissue contusion, no evidence of solid or hollow viscus injury, no fractures. 07/08/20 23:36 Patient updated on the results, he has tolerated p.o. He will need transport back to his home. Return precautions discussed, patient stable at time of discharge. - Vital Signs Vital signs: Temp Pulse Resp BP Pulse Ox 22 H 196/101 H 97 07/08/20 22:46 07/08/20 22:46 07/08/20 22:46 - Laboratory Result Diagrams: 07/08/20 20:29 07/08/20 20:29 Laboratory results interpreted by me: 07/08/20 07/08/20 07/08/20 20:29 20:29 21:45 WBC 14.7 H Hgb 10.7 L Hct 32.4 L MCV 72 L MCH 23.8 L RDW 19.2 H Absolute Neuts (auto) 10.9 H Sodium 136.9 L Urine Protein 30 H - Diagnostic Test Radiology reviewed: Image reviewed, Reports reviewed - EKG Interpretation by Me Additional EKG results interpreted by me: EKG as interpreted by me. Sinus arrhythmia, rate 98. Widened QRS, LAFB. There is a PVC. No ST segment elevation or depression. Discharge - Discharge Clinical Impression: Fall Qualifiers: Encounter type: initial encounter Qualified Code(s): W19.XXXA - Unspecified fall, initial encounter Chest wall contusion Qualifiers: Encounter type: initial encounter Laterality: unspecified laterality Qualified Code(s): S20.219A - Contusion of unspecified front wall of thorax, initial e ncounter Facial injury Qualifiers: Encounter type: initial encounter Qualified Code(s): S09.93XA - Unspecified injury of face, initial encounter Disposition: HOME, SELF-CARE Additional Instructions: Use pain medications as needed. Please have close follow-up with your primary care doctor. Return to emergency department for any concerning worsening symptoms. Prescriptions: Hydrocodone/Acetaminophen [Wood 5-325 Tablet] 1 each PO Q4H PRN #10 tablet PRN Reason: Referrals: RUEL HAGAN DPM [ACTIVE STAFF] - Follow up as needed
[2020-07-08] MEDS ORDERED: ONDANSETRON HCL INJ/PF 4 MG/2 ML SDV IV ONE (20:40)
[2020-07-08] MEDS ORDERED: ONDANSETRON HCL INJ/PF 4 MG/2 ML SDV ONE (20:41)
[2020-07-08 20:42] LABS: ABSOLUTE BASOPHILS # (AUTO) 0.1 10^3/uL (0.0-0.2); ABSOLUTE LYMPHOCYTES (AUTO) 2.5 10^3/uL (0.5-4.7); ABSOLUTE MONOCYTES (AUTO) 1.2 10^3/uL (0.1-1.4); ABSOLUTE NEUT (AUTO) 10.9 10^3/uL (1.7-8.2); BASOPHILS % (AUTO) 0.7 % (0-2); EOSINOPHILS % (AUTO) 0.3 % (0-6); HEMATOCRIT 32.4 % (37.9-51.0); HEMOGLOBIN 10.7 g/dL (13.5-17.0); LYMPHOCYTES % (AUTO) 16.8 % (13-45); MEAN CORPUSCULAR HEMOGLOBIN 23.8 pg (27.0-33.4); MEAN CORPUSCULAR VOLUME 72 fl (80-97); MONOCYTES % (AUTO) 8.1 % (3-13); PLATELET COUNT 302 10^3/uL (150-450); RED BLOOD COUNT 4.48 10^6/uL (4.35-5.55); RED CELL DISTRIBUTION WIDTH 19.2 % (11.5-14.0); SEGMENTED NEUTROPHILS % (AUTO) 74.1 % (42-78); TOTAL CELLS COUNTED % (AUTO) 100 %; WHITE BLOOD COUNT 14.7 10^3/uL (4.0-10.5)
[2020-07-08 20:58] LABS: INTERNATIONAL RATION (INR) 1.02; PROTHROMBIN TIME 13.6 SEC (11.4-15.4)
[2020-07-08 20:59] LABS: PARTIAL THROMBOPLASTIN TIME 32.6 SEC (23.5-35.8)
[2020-07-08 21:08] LABS: ALBUMIN 4.5 g/dL (3.5-5.0); ALCOHOL 156 mg/dL (NONE DETECTED); ALKALINE PHOSPHATASE 101 U/L (38-126); ANION GAP 16 (5-19); ASPARTATE AMINO TRANSFERASE 28 U/L (17-59); BILIRUBIN,DIRECT 0.4 mg/dL (0.0-0.4); BILIRUBIN,TOTAL 0.4 mg/dL (0.2-1.3); BLOOD UREA NITROGEN 17 mg/dL (7-20); CALCIUM 9.6 mg/dL (8.4-10.2); CARBON DIOXIDE 22 mmol/L (22-30); CHLORIDE 99 mmol/L (98-107); GLUCOSE 92 mg/dL (75-110); POTASSIUM 4.1 mmol/L (3.6-5.0); TOTAL PROTEIN 8.1 g/dL (6.3-8.2)
--- NOTE | 2020-07-08 21:22 | RADIOLOGY REPORT (SQ) ---
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 Comparison: Chest radiograph performed 06/21/2020. Findings: The cardiomediastinal silhouette is enlarged. No pneumothorax is seen. There is blunting of both costophrenic angles, suggestive of trace effusions or scarring. There are chronic bibasilar airspace opacities present. These may represent scarring or atelectasis No acute airspace opacities are seen. There are calcified bilateral pleural plaques noted. Impression: No new airspace opacities are seen. The cardiomediastinal silhouette is enlarged. Bilateral calcified pleural plaques are seen.
[2020-07-08] MEDS ORDERED: DIPH/PERTUSS(ACELL)/TETANUS VAC/PF 0.5 ML SYR (>=10YO) IM ONE ×2 (21:27→23:53)
--- NOTE | 2020-07-08 21:35 | RADIOLOGY REPORT (SQ) ---
CT BRAIN, CERVICAL SPINE, AND FACIAL BONES HISTORY: Trauma. COMPARISON: None. TECHNIQUE: CT scan of the brain, cervical spine, and facial bones was performed without IV contrast. This exam was performed according to our departmental dose-optimization program, which includes automated exposure control, adjustment of the mA and/or kV according to patient size and/or use of iterative reconstruction technique. FINDINGS: BRAIN: There are scattered areas of hypoattenuation within the periventricular white matter, which likely represent chronic microvascular ischemia. No evidence of acute infarction, intracranial hemorrhage, extra-axial fluid collection, or midline shift. No depressed skull fracture. CERVICAL SPINE: No acute cervical fracture or prevertebral soft tissue swelling is seen. The cervical alignment is maintained. There has been prior osseous fusion at C5-C6. The remaining disc spaces and facet joints demonstrate mild degenerative changes. No high-grade spinal canal stenosis is seen. FACIAL BONES: No acute facial bone fracture is seen. No air-fluid levels are seen in the paranasal sinuses. The mastoid air cells are clear. No retrobulbar mass or hematoma is identified. There is mild soft tissue swelling overlying the right cheek. IMPRESSION: 1. No acute intracranial hemorrhage or cervical fracture. 2. Right facial soft tissue swelling but no facial bone fracture is seen.
[2020-07-08 22:08] LABS: APPEARANCE,URINE CLEAR; BILIRUBIN,URINE NEGATIVE (NEGATIVE); COLOR,URINE STRAW; GLUCOSE, URINE NEGATIVE (NEGATIVE); KETONES,URINE NEGATIVE (NEGATIVE); LEUKOCYTE ESTERASE,URINE NEGATIVE (NEGATIVE); NITRITE,URINE NEGATIVE (NEGATIVE); PROTEIN,URINE 30 mg/dL (NEGATIVE); URINE SPECIFIC GRAVITY 1.008; UROBILINOGEN,URINE NEGATIVE mg/dL (<2.0)
[2020-07-08 22:20] LABS: URINE AMPHETAMINES SCREEN NEGATIVE; URINE BARBITURATES SCREEN NEGATIVE; URINE BENZODIAZEPINES SCREEN NEGATIVE; URINE COCAINE SCREEN NEGATIVE; URINE MARIJUANA (THC) SCREEN NEGATIVE; URINE METHADONE SCREEN NEGATIVE; URINE PHENCYCLIDINE SCREEN NEGATIVE
--- NOTE | 2020-07-08 23:12 | RADIOLOGY REPORT (SQ) ---
CT CHEST, ABDOMEN, AND PELVIS HISTORY: Fall. Right-sided body wall ecchymosis. COMPARISON: None. TECHNIQUE: CT scan of the chest, abdomen, and pelvis with IV contrast. This exam was performed according to our departmental dose-optimization program, which includes automated exposure control, adjustment of the mA and/or kV according to patient size and/or use of iterative reconstruction technique. FINDINGS: The thyroid gland is unremarkable. No mediastinal or hilar adenopathy. The heart size is normal without pericardial effusion. No consolidation, pleural effusion, or pneumothorax. There are multiple bilateral calcified pleural plaques, as well as areas of rounded atelectasis in the bilateral lower lobes. The liver, spleen, pancreas, gallbladder, adrenal glands, and kidneys are unremarkable. No obstructing urinary stones are seen. The pelvic organs are also unremarkable. No bowel obstruction or inflammation. No intraperitoneal free fluid, free air, or adenopathy. The aorta is diffusely atherosclerotic. No acute fractures identified. There are multiple old healed right-sided rib fractures. There is mild soft tissue contusion along the anterior chest wall. No body wall soft tissue hematoma is identified. IMPRESSION: 1. Mild anterior chest wall soft tissue contusion. 2. No evidence of solid or hollow viscus injury. 3. No acute fracture is identified.
[2020-07-08] MEDS ORDERED: HYDROCODONE/ACETAMINOPHEN 5-325 MG TABLET PO ONE (23:36)
[2020-07-09 05:44] VITALS: BP 163/112
--- NOTE | 2020-07-09 18:00 | EKG REPORT ---
SEVERITY:- ABNORMAL ECG - SINUS TACHYCARDIA MULTIPLE VENTRICULAR PREMATURE COMPLEXES RBBB AND LAFB : Confirmed by: Kody Magana MD 09-Jul-2020 18:00:01
== END 2020-07-09 00:17 | disposition home or self-care (01) ==
LOC: ER 20:17
DX: S20.219A Contusion of unspecified front wall of thorax, initial encounter (principal); S01.411A Laceration without foreign body of right cheek and temporomandibular area, initial encounter; S06.9X9A Unspecified intracranial injury with loss of consciousness of unspecified duration, initial encounter; R07.9 Chest pain, unspecified; R06.02 Shortness of breath; W18.30XA Fall on same level, unspecified, initial encounter; Y92.002 Bathroom of unspecified non-institutional (private) residence as the place of occurrence of the external cause; F17.200 Nicotine dependence, unspecified, uncomplicated; I25.10 Atherosclerotic heart disease of native coronary artery without angina pectoris; I25.2 Old myocardial infarction; I10 Essential (primary) hypertension; L98.9 Disorder of the skin and subcutaneous tissue, unspecified
CPT/HCPCS: 93005; 99285; 90471; 96374; 96375; 36415; 80307 ×2; 85025; 85610; 85730; 80053; 81001; 84484; 71045; 70450; 70486; 71260; 72125; 74177; 90715; 93010; J2270; J2405; A9270